=== PATIENT | female | born 1955 | race Caucasian/White ===

== ENCOUNTER 2016-11-21 19:19 | Observation (INO) | payer OTHER ==
[2016-11-21] MEDS ORDERED: NITROGLYCERIN SL TABS 0.4 MG TAB SUBLINGUAL STA ×3 (19:37)
[2016-11-21] MEDS ORDERED: ASPIRIN 81 MG PO STA (19:37)
--- NOTE | 2016-11-21 19:40 | ED ---
General Adult HPI - General Chief complaint: Chest Pain Stated complaint: chest pressure (hx pulmonary hypertension) Time Seen by Provider: 11/21/16 19:34 Source: patient, RN notes reviewed Mode of arrival: wheelchair Limitations: no limitations - History of Present Illness Initial comments: Patient is a pleasant [age]-year-old female presenting to the emergency department complaining of chest discomfort. Onset was this morning. Symptoms have been waxing and waning since that time. Discomfort is moderate at this time. Discomfort feels a pressure without radiation. There is some associated nausea and patient has been a little bit sweaty. No dyspnea. Patient did have similar symptoms previously when she had a heart attack. Patient does admit to having 2 drinks earlier today that seemed to be very strong for her. Patient does not normally drink much alcohol. Patient does feel lightheaded and like her legs are weak. - Related Data Home Medications Medication Instructions Recorded Confirmed Furosemide [Lasix] 80 mg PO BID 11/21/16 11/21/16 Gabapentin [Neurontin] 300 mg PO TID 11/21/16 11/21/16 Levothyroxine Sodium [Synthroid] 88 mcg PO DAILY 11/21/16 11/21/16 Potassium Chloride ER [K-Dur 20] 20 meq PO DAILY 11/21/16 11/21/16 Ranitidine HCl [Zantac] 150 mg PO BID 11/21/16 11/21/16 Selexipag [Uptravi] 1,600 mcg PO BID 11/21/16 11/21/16 Spironolactone [Aldactone] 200 mg PO DAILY 11/21/16 11/21/16 oxyCODONE-APAP 10-325MG [Percocet 1 tab PO Q6HR PRN 11/21/16 11/21/16 10-325 mg] Allergies Allergy/AdvReac Type Severity Reaction Status Date / Time cephalexin [From Keflex] Allergy Rash/Hives Verified 11/21/16 20:47 heparin Allergy Thrombocyto Verified 11/21/16 20:47 penia Review of Systems ROS Statement: Those systems with pertinent positive or pertinent negative responses have been documented in the HPI. ROS Other: All systems not noted in ROS Statement are negative. Constitutional: Denies: fever Eyes: Denies: eye pain ENT: Denies: ear pain Respiratory: Denies: cough Cardiovascular: Reports: chest pain Endocrine: Denies: fatigue Gastrointestinal: Reports: nausea. Denies: abdominal pain Genitourinary: Denies: dysuria Musculoskeletal: Denies: back pain Skin: Denies: rash Neurological: Denies: headache Past Medical History Past Medical History: Coronary Artery Disease (CAD), Myocardial Infarction ([place]) Additional Past Medical History / Comment(s): pulmonary fibrosis History of Any Multi-Drug Resistant Organisms: None Reported Past Psychological History: No Psychological Hx Reported Smoking Status: Current every day smoker Past Alcohol Use History: Occasional Past Drug Use History: None Reported General Exam Limitations: no limitations General appearance: alert, in no apparent distress Head exam: Present: atraumatic Eye exam: Present: normal appearance, PERRL, EOMI, nystagmus ENT exam: Present: normal oropharynx Neck exam: Present: normal inspection Respiratory exam: Present: normal lung sounds bilaterally Cardiovascular Exam: Present: regular rate, normal rhythm Expanded Peripheral pulses: 2+: Radial (R), Radial (L), Dorsalis Pedis (R), Dorsalis Pedis (L) GI/Abdominal exam: Present: soft. Absent: tenderness Extremities exam: Present: normal inspection. Absent: pedal edema, calf tenderness Neurological exam: Present: alert Psychiatric exam: Present: normal affect, normal mood Skin exam: Present: normal color Course Vital Signs 11/21/16 11/21/16 11/21/16 19:35 19:58 20:06 Temperature 98.1 F Pulse Rate 77 90 84 Respiratory 18 16 16 Rate Blood Pressure 131/82 112/78 103/68 O2 Sat by Pulse 96 95 95 Oximetry 11/21/16 20:56 Temperature Pulse Rate 81 Respiratory 16 Rate Blood Pressure 98/63 O2 Sat by Pulse 98 Oximetry EKG Findings - EKG Comments: EKG Findings:: Normal sinus rhythm 75. SD 164. QRS 74. QT 406. QTc 453. Normal axis. Normal QRS. No acute ST change. Medical Decision Making - Medical Decision Making Patient reevaluated and resting comfortably in bed. Patient updated on results and plan. Case was discussed with Dr. Albrecht with [facility] who will admit for hospital call. - Lab Data Result diagrams: 11/21/16 19:45 11/21/16 19:45 Lab Results 11/21/16 11/21/16 11/21/16 Range/Units 19:45 19:45 19:45 WBC 6.3 (3.8-10.6) k/uL RBC 5.22 (3.80-5.40) m/uL Hgb 17.6 H (11.4-16.0) gm/dL Hct 53.4 H (34.0-46.0) % MCV 102.3 H (80.0-100.0) fL MCH 33.7 (25.0-35.0) pg MCHC 32.9 (31.0-37.0) g/dL RDW 14.1 (11.5-15.5) % Plt Count 151 (150-450) k/uL Neutrophils % 59 % Lymphocytes % 27 % Monocytes % 8 % Eosinophils % 2 % Basophils % 1 % Neutrophils # 3.7 (1.3-7.7) k/uL Lymphocytes # 1.7 (1.0-4.8) k/uL Monocytes # 0.5 (0-1.0) k/uL Eosinophils # 0.1 (0-0.7) k/uL Basophils # 0.0 (0-0.2) k/uL Macrocytosis Slight PT (9.0-12.0) sec INR (<1.2) APTT (22.0-30.0) sec Sodium 140 (137-145) mmol/L Potassium 3.6 (3.5-5.1) mmol/L Chloride 107 (98-107) mmol/L Carbon Dioxide 20 L (22-30) mmol/L Anion Gap 13 mmol/L BUN 4 L (7-17) mg/dL Creatinine 0.70 (0.52-1.04) mg/dL Est GFR (MDRD) Af Amer >60 (>60 ml/min/1.73 sqM) Est GFR (MDRD) Non-Af >60 (>60 ml/min/1.73 sqM) Glucose 100 H (74-99) mg/dL Calcium 9.1 (8.4-10.2) mg/dL Magnesium 2.1 (1.6-2.3) mg/dL Total Bilirubin 0.8 (0.2-1.3) mg/dL AST 50 H (14-36) U/L ALT 45 (9-52) U/L Alkaline Phosphatase 154 H (38-126) U/L Total Creatine Kinase 47 (30-135) U/L CK-MB (CK-2) 0.4 (0.0-2.4) ng/mL CK-MB (CK-2) Rel Index 0.9 Troponin I <0.012 (0.000-0.034) ng/mL Total Protein 8.0 (6.3-8.2) g/dL Albumin 4.6 (3.5-5.0) g/dL Serum Alcohol 222 mg/dL 11/21/16 Range/Units 19:45 WBC (3.8-10.6) k/uL RBC (3.80-5.40) m/uL Hgb (11.4-16.0) gm/dL Hct (34.0-46.0) % MCV (80.0-100.0) fL MCH (25.0-35.0) pg MCHC (31.0-37.0) g/dL RDW (11.5-15.5) % Plt Count (150-450) k/uL Neutrophils % % Lymphocytes % % Monocytes % % Eosinophils % % Basophils % % Neutrophils # (1.3-7.7) k/uL Lymphocytes # (1.0-4.8) k/uL Monocytes # (0-1.0) k/uL Eosinophils # (0-0.7) k/uL Basophils # (0-0.2) k/uL Macrocytosis PT 10.7 (9.0-12.0) sec INR 1.1 (<1.2) APTT 26.4 (22.0-30.0) sec Sodium (137-145) mmol/L Potassium (3.5-5.1) mmol/L Chloride (98-107) mmol/L Carbon Dioxide (22-30) mmol/L Anion Gap mmol/L BUN (7-17) mg/dL Creatinine (0.52-1.04) mg/dL Est GFR (MDRD) Af Amer (>60 ml/min/1.73 sqM) Est GFR (MDRD) Non-Af (>60 ml/min/1.73 sqM) Glucose (74-99) mg/dL Calcium (8.4-10.2) mg/dL Magnesium (1.6-2.3) mg/dL Total Bilirubin (0.2-1.3) mg/dL AST (14-36) U/L ALT (9-52) U/L Alkaline Phosphatase (38-126) U/L Total Creatine Kinase (30-135) U/L CK-MB (CK-2) (0.0-2.4) ng/mL CK-MB (CK-2) Rel Index Troponin I (0.000-0.034) ng/mL Total Protein (6.3-8.2) g/dL Albumin (3.5-5.0) g/dL Serum Alcohol mg/dL - Radiology Data Radiology results: image reviewed (Chest x-ray shows engorgement of the hilum which may be related to underlying pulmonary hypertension. Mild pulmonary vascular congestion.) Disposition Clinical Impression: Chest pain Disposition: ADMITTED IP TO THIS HOSP Referrals: Daniel Miller DO [Primary Care Provider] - 1-2 days Decision Time: 21:12
[2016-11-21 19:59] LABS: Basophils % (A) 1 %; CH 34.6; Eosinophils # (A) 0.1 k/uL (0-0.7); Eosinophils % (A) 2 %; HCT 53.4 % (34.0-46.0); HGB 17.6 gm/dL (11.4-16.0); Luc # (Auto) 0.22; Luc % (Auto) 3; Lymphocytes # (A) 1.7 k/uL (1.0-4.8); Lymphocytes % (A) 27 %; MCH 33.7 pg (25.0-35.0); MCHC 32.9 g/dL (31.0-37.0); MCV 102.3 fL (80.0-100.0); Macrocytosis Slight; Mean Platelet Volume 8.9; Monocytes # (A) 0.5 k/uL (0-1.0); Monocytes % (A) 8 %; Neutrophils # (A) 3.7 k/uL (1.3-7.7); Neutrophils % (A) 59 %; RBC 5.22 m/uL (3.80-5.40); RDW 14.1 % (11.5-15.5); WBC 6.3 k/uL (3.8-10.6); WBC (Perox) 6.25
[2016-11-21 20:09] LABS: ALT 45 U/L (9-52); AST 50 U/L (14-36); Alkaline Phosphatase 154 U/L (38-126); Anion Gap 13 mmol/L; Blood Urea Nitrogen 4 mg/dL (7-17); Calcium 9.1 mg/dL (8.4-10.2); Carbon Dioxide 20 mmol/L (22-30); Chloride 107 mmol/L (98-107); Glucose 100 mg/dL (74-99); Magnesium 2.1 mg/dL (1.6-2.3); Non-African American GFR(MDRD) >60 (>60 ml/min/1.73 sqM); Potassium 3.6 mmol/L (3.5-5.1); Sodium 140 mmol/L (137-145); Total Bilirubin 0.8 mg/dL (0.2-1.3)
[2016-11-21 20:11] LABS: INR 1.1 (<1.2); Partial Thromboplastin Time 26.4 sec (22.0-30.0); Prothrombin Time 10.7 sec (9.0-12.0)
[2016-11-21 20:12] LABS: Creatine Kinase 47 U/L (30-135)
[2016-11-21 20:19] LABS: Alcohol 222 mg/dL
[2016-11-21 20:27] LABS: Creatine Kinase MB 0.4 ng/mL (0.0-2.4); Troponin I <0.012 ng/mL (0.000-0.034)
--- NOTE | 2016-11-21 20:51 | XR ---
EXAMINATION TYPE: XR chest 2V DATE OF EXAM: 11/21/2016 COMPARISON: NONE HISTORY: Chest pain, hypertension, coronary artery disease and pulmonary fibrosis TECHNIQUE: Frontal and lateral views of the chest are obtained. FINDINGS: There is no focal air space opacity, pleural effusion, or pneumothorax seen. Engorged hil ar vasculature may relate to underlying pulmonary arterial hypertension. Mild cephalization relates t o mild pulmonary vascular congestion. The cardiac silhouette size is within normal limits. The osse ous structures are intact. IMPRESSION: 1. Mild pulmonary vascular congestion. 2. Engorgement of the jose c may relate to underlying pulmonary arterial hypertension.
[2016-11-21 22:41] VITALS: RESP 18
[2016-11-21] MEDS ORDERED: NITROGLYCERIN SL TABS 0.4 MG TAB SUBLINGUAL PRN (23:34)
[2016-11-21] MEDS: oxyCODONE-APAP 10-325MG 1 EACH TAB PO PRN (23:39)
[2016-11-21] MEDS ORDERED: LORazepam 0.5 MG TAB PO SCH (23:45)
--- NOTE | 2016-11-21 23:58 | P.HPIM ---
History of Present Illness H&P Date: 11/21/16 Chief Complaint: Chest pain Patient is 61 years old female with history of coronary artery disease presents to the emergency room with a chief complaint of chest pain and and she characterizes the pain as pressure "someone is sitting on my chest", it happened while she was walking in her house she had 2 drinks prior to that which she is not accustomed to as, the pain lasted around 20 minutes or so no radiation, improved with nitroglycerin sublingual Review of Systems Constitutional: Patient reports no fever, no chills, no weight changes, no change in appetite Eyes: Patient reports no double vision, no visual changes ENT: Patient reports no rhinorrhea, no post nasal drip, no sore throat Cardiovascular: Patient reports chest, no edema, no palpitations, no syncope, no orthopnea, no paroxysmal nocturnal dyspnea. Respiratory: Patient reports no dyspnea, no cough, no wheeze Gastrointestinal: Patient reports no nausea, no vomiting, no constipation, no diarrhea Genitourinary: Patient reports no dysuria, no urinary frequency, no hematuria. Musculoskeletal: Patient reports no unusual joint pain, no joint swelling or weakness. Patient reports no muscular pain. Psychiatric: Patient reports no changes in mood, no sleeping problems. Patient reports no changes in memory. Endocrine: Patient reports no thirst, no polyuria, no cold intolerance, no heat intolerance. Neurological: Patient reports unusual paresthesias in her feet and she was told to neuropathy, no seizures, no paresis, no paralysis, no facila droop, no headache. Heme/Lymphatic: Patient reports no easy bruising, no bleeding tendency, no lymphadenopathy. Allergic/ Immunologic: Patient reports no recent allergic reactions or immunologic history. Skin: Patient reports no rashes or unusual lesions. Past Medical History Past Medical History: Coronary Artery Disease (CAD), Myocardial Infarction ([place]) Additional Past Medical History / Comment(s): pulmonary fibrosis, liver cirrhosis, PNeuropathy History of Any Multi-Drug Resistant Organisms: None Reported Past Surgical History: Heart Catheterization Past Psychological History: No Psychological Hx Reported Smoking Status: Current every day smoker Past Alcohol Use History: Occasional Past Drug Use History: None Reported Medications and Allergies Home Medications Medication Instructions Recorded Confirmed Type Furosemide [Lasix] 80 mg PO BID 11/21/16 11/21/16 History Gabapentin [Neurontin] 300 mg PO TID 11/21/16 11/21/16 History Levothyroxine Sodium [Synthroid] 88 mcg PO DAILY 11/21/16 11/21/16 History Potassium Chloride ER [K-Dur 20] 20 meq PO DAILY 11/21/16 11/21/16 History Ranitidine HCl [Zantac] 150 mg PO BID 11/21/16 11/21/16 History Selexipag [Uptravi] 1,600 mcg PO BID 11/21/16 11/21/16 History Spironolactone [Aldactone] 200 mg PO DAILY 11/21/16 11/21/16 History oxyCODONE-APAP 10-325MG [Percocet 1 tab PO Q6HR PRN 11/21/16 11/21/16 History 10-325 mg] Allergies Allergy/AdvReac Type Severity Reaction Status Date / Time cephalexin [From Keflex] Allergy Rash/Hives Verified 11/21/16 20:47 heparin Allergy Thrombocyto Verified 11/21/16 20:47 penia Physical Exam Vitals: Vital Signs Temp Pulse Pulse Resp BP BP Pulse Ox 11/21/16 22:39 98.1 F 78 18 118/70 97 11/21/16 21:53 97.9 F 84 16 101/60 98 11/21/16 21:45 79 16 101/59 99 11/21/16 20:56 81 16 98/63 98 11/21/16 20:06 84 16 103/68 95 11/21/16 19:58 90 16 112/78 95 11/21/16 19:35 98.1 F 77 18 131/82 96 Intake and Output 11/21/16 11/21/16 11/22/16 14:59 22:59 06:59 Other: Weight 70.76 kg Patient Weight 11/22/16 06:59 Weight 70.76 kg Results CBC & Chem 7: 11/21/16 19:45 11/21/16 19:45 Labs: Abnormal Lab Results - Last 24 Hours (Table) 11/21/16 11/21/16 Range/Units 19:45 19:45 Hgb 17.6 H (11.4-16.0) gm/dL Hct 53.4 H (34.0-46.0) % MCV 102.3 H (80.0-100.0) fL Carbon Dioxide 20 L (22-30) mmol/L BUN 4 L (7-17) mg/dL Glucose 100 H (74-99) mg/dL AST 50 H (14-36) U/L Alkaline Phosphatase 154 H (38-126) U/L
[2016-11-22 00:03] VITALS: BMI 25.9
--- NOTE | 2016-11-22 00:15 | P.HPADDEND ---
H&P Addendum H&P Addendum Date: 11/22/16 Assessment and plan: .1 chest pain She will be ruled out with serial troponins we continue nitroglycerin aspirin would not use beta blockers due to low blood pressure and likely history of COPD ] the patient had pulmonary hypertension diagnosis. We will place her on telemetry provide oxygen morphine as needed for pain. We will consult cardiology in the morning as the patient most likely will need a stress test if she is ruled out. 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 .3 liver cirrhosis Patient carries diagnosis of liver cirrhosis she was told it is due to alcohol as she used to drink heavily in the past I did world travel counselor her as she occasionally drinks alcohol now. She does not have the stigmata of liver cirrhosis and her laboratory findings seems to be stable. She will continue to follow-up as outpatient with her liver specialist in [facility]. 4. Pulmonary hypertension Per patient she has history of pulmonary hypertension and she follows at [facility] she is not sure about cause of her disease however she had long-standing history of smoking so it's likely related to COPD I Will place her on oxygen and nebulizer per protocol. 5. Smoking and nicotine abuse. She was counseled more than 20 minutes regarding nicotine cessation. Time spent admitting this patient is 1 hour 10 minutes.
[2016-11-22] MEDS: NITROGLYCERIN OINT 1 INCH/GM PACKET TOPICAL SCH ×2 (02:59→13:09)
[2016-11-22] MEDS ORDERED: LEVOTHYROXINE 88 MCG TAB PO SCH (06:30)
[2016-11-22 07:49] VITALS: TEMP 97.9
[2016-11-22] MEDS: oxyCODONE-APAP 10-325MG 1 EACH TAB PO PRN ×2 (08:48→16:05)
[2016-11-22] MEDS ORDERED: ASPIRIN 81 MG PO SCH (09:00)
[2016-11-22] MEDS ORDERED: FUROSEMIDE 80 MG TAB PO SCH (09:00)
[2016-11-22] MEDS ORDERED: GABAPENTIN 300 MG CAP PO SCH ×2 (09:00)
[2016-11-22] MEDS ORDERED: SPIRONOLACTONE 25 MG TAB PO SCH (09:00)
[2016-11-22] MEDS ORDERED: NON-FORMULARY DRUG (Ranitidine Hcl [Zantac] 150 MG) PO SCH (09:00)
[2016-11-22] MEDS ORDERED: SELEXIPAG 1600 MCG PO SCH (09:00)
[2016-11-22] MEDS ORDERED: AMINOPHYLLINE 500 MG/20 ML VIAL IV PRN (10:16)
[2016-11-22] MEDS ORDERED: REGADENOSON 0.4 MG/5 ML SYRINGE IV ONE (10:16)
--- NOTE | 2016-11-22 10:24 | P.CRDCN ---
History of Present Illness Consult date: 11/22/16 History of present illness: This is a 61-year-old female with history of "" coronary artery disease and also pulmonary hypertension who also is diagnosed to have cirrhosis of the liver , is admitted to the hospital with complaints of some episodes of dizziness and sharp chest pains and also some heaviness on the left side of the chest. The symptoms might last A half hour or so. Apparently patient was given sublingual nitroglycerin without much relief. Subsequent a she was given something to relax her anxiety and she started feeling better. Her EKGs did not reveal any significant changes. Cardiac enzymes are so far not size to of myocardial infarction. We discussed about the further evaluation here to by cardiac catheterization or a stress test. 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 Patient is not on heparin. We decided to proceed with the Lexiscan stress test. Further examination depend upon the findings on the Stress test. Her EKGs are completely normal Review of Systems As per HPI Past Medical History Past Medical History: Coronary Artery Disease (CAD), Myocardial Infarction ([place]) Additional Past Medical History / Comment(s): pulmonary fibrosis, liver cirrhosis, PNeuropathy Last Myocardial Infarction Date:: 2012 History of Any Multi-Drug Resistant Organisms: None Reported Past Surgical History: Heart Catheterization Past Anesthesia/Blood Transfusion Reactions: No Reported Reaction Past Psychological History: No Psychological Hx Reported Smoking Status: Current every day smoker Past Alcohol Use History: Occasional Past Drug Use History: None Reported Medications and Allergies Home Medications Medication Instructions Recorded Confirmed Type Furosemide [Lasix] 80 mg PO BID 11/21/16 11/21/16 History Gabapentin [Neurontin] 300 mg PO TID 11/21/16 11/21/16 History Levothyroxine Sodium [Synthroid] 88 mcg PO DAILY 11/21/16 11/21/16 History Potassium Chloride ER [K-Dur 20] 20 meq PO DAILY 11/21/16 11/21/16 History Ranitidine HCl [Zantac] 150 mg PO BID 11/21/16 11/21/16 History Selexipag [Uptravi] 1,600 mcg PO BID 11/21/16 11/21/16 History Spironolactone [Aldactone] 200 mg PO DAILY 11/21/16 11/21/16 History oxyCODONE-APAP 10-325MG [Percocet 1 tab PO Q6HR PRN 11/21/16 11/21/16 History 10-325 mg] Allergies Allergy/AdvReac Type Severity Reaction Status Date / Time cephalexin [From Keflex] Allergy Rash/Hives Verified 11/21/16 20:47 heparin Allergy Thrombocyto Verified 11/21/16 20:47 penia Physical Exam Vitals: Vital Signs Temp Pulse Pulse Resp BP BP Pulse Ox 11/22/16 07:48 97.9 F 87 18 103/74 93 L 11/22/16 04:00 98.1 F 84 18 109/70 95 11/22/16 00:00 75 18 11/21/16 22:39 98.1 F 78 18 118/70 97 11/21/16 21:53 97.9 F 84 16 101/60 98 11/21/16 21:45 79 16 101/59 99 11/21/16 20:56 81 16 98/63 98 11/21/16 20:06 84 16 103/68 95 11/21/16 19:58 90 16 112/78 95 11/21/16 19:35 98.1 F 77 18 131/82 96 Intake and Output 11/21/16 11/22/16 11/22/16 22:59 06:59 14:59 Other: # Voids 1 Weight 70.76 kg GENERAL EXAM: Patient is alert and oriented and doesn't appear to be in any acute distress, looks chronically ill HEENT: Normocephalic. Normal reaction of pupils, equal size, normal range of extraocular motion. No erythema or exudates in the throat. NECK: No masses, no nuchal rigidity. CHEST: No chest wall deformity. LUNGS: Equal air entry with no crackles or wheeze. Diminished breath sounds HEART: S1 and S2 normal with no audible mumurs or gallops. Regular rhythm, femorals equal on both sides.. ABDOMEN: No hepatosplenomegaly, normal bowel sounds, no guarding or rigidity. SKIN: No rashes CENTRAL NERVOUS SYSTEM: No focal deficits. EXTREMITIES: No cyanosis, clubbing or edema. Results 11/21/16 19:45 11/21/16 19:45 Cardiac Enzymes 11/21/16 11/21/16 11/22/16 Range/Units 19:45 19:45 01:54 AST 50 H (14-36) U/L CK-MB (CK-2) 0.4 (0.0-2.4) ng/mL Troponin I <0.012 <0.012 (0.000-0.034) ng/mL Coagulation 11/21/16 Range/Units 19:45 PT 10.7 (9.0-12.0) sec APTT 26.4 (22.0-30.0) sec CBC 11/21/16 Range/Units 19:45 WBC 6.3 (3.8-10.6) k/uL RBC 5.22 (3.80-5.40) m/uL Hgb 17.6 H (11.4-16.0) gm/dL Hct 53.4 H (34.0-46.0) % Plt Count 151 (150-450) k/uL Comprehensive Metabolic Panel 11/21/16 Range/Units 19:45 Sodium 140 (137-145) mmol/L Potassium 3.6 (3.5-5.1) mmol/L Chloride 107 (98-107) mmol/L Carbon Dioxide 20 L (22-30) mmol/L BUN 4 L (7-17) mg/dL Creatinine 0.70 (0.52-1.04) mg/dL Glucose 100 H (74-99) mg/dL Calcium 9.1 (8.4-10.2) mg/dL AST 50 H (14-36) U/L ALT 45 (9-52) U/L Alkaline Phosphatase 154 H (38-126) U/L Total Protein 8.0 (6.3-8.2) g/dL Albumin 4.6 (3.5-5.0) g/dL Current Medications Generic Name Dose Route Start Last Admin Trade Name Freq PRN Reason Stop Dose Admin Aminophylline 100 mg 11/22/16 10:16 Aminophylline IV 11/23/16 10:17 ONCE PRN Patient Response Aspirin 81 mg 11/22/16 09:00 Aspirin PO DAILY [facility] Furosemide 80 mg 11/22/16 09:00 Lasix PO BID [facility] Gabapentin 300 mg 11/22/16 09:00 Neurontin PO TID [facility] Levothyroxine Sodium 88 mcg 11/22/16 06:30 11/22/16 06:49 Synthroid PO Not Given 0630 [facility] Nitroglycerin 1 inch 11/22/16 00:00 11/22/16 02:59 Nitro-Bid Oint TOPICAL Not Given Q8HR [facility] Nitroglycerin 0.4 mg 11/21/16 23:34 Nitrostat SUBLINGUAL Q5M PRN Chest Pain Non-Formulary Medication 150 mg 11/22/16 09:00 Ranitidine Hcl [Zantac] PO BID [facility] Non-Formulary Medication 1,600 mcg 11/22/16 09:00 Selexipag [Uptravi] PO BID [facility] Oxycodone/Acetaminophen 1 each 11/21/16 23:06 11/22/16 08:48 Percocet 10-325 PO 1 each Q6HR PRN Administration Pain Spironolactone 200 mg 11/22/16 09:00 Aldactone PO DAILY [facility] Intake and Output 11/21/16 11/22/16 11/22/16 22:59 06:59 14:59 Other: # Voids 1 Weight 70.76 kg 11/21/16 19:45 11/21/16 19:45 EKG Interpretations (text) Sinus rhythm Assessment and Plan (1) History of pulmonary fibrosis Status: Acute (2) Chest pain Status: Acute (3) History of coronary artery disease Status: Acute (4) Cirrhosis of liver Status: Acute Plan: As patient cardiac enzymes and EKGs are negative and patient has history of heparin-induced thrombocytopenia, we are going to proceed with the Lexiscan stress test. If the test is positive may recommend further cardiac catheterization. If not, patient could be managed with medical therapy. Patient will have follow-up with the test designer at [facility].
[2016-11-22 11:38] VITALS: BP 119/75; PULSE 63
--- NOTE | 2016-11-22 12:42 | P.STRESS ---
- Stress Test Note Stress Test Results/Findings: Exam Performed: NM stress lexiscan cardiolite Exam Date: 11/22/16 Reason for Exam: CHEST PAIN Height: 5 ft 5 in Weight: 70.76 kg Protocol: LEXISCAN CARDIOLITE Stage: Duration of Exercise: 5:00 Resting Heart Rate: 75 Resting Blood Pressure: 100/69 Maximum Achieved Heart Rate: 112 Maximum Achieved Blood Pressure: 119/92 85% PMHR: 152 100% PMHR: 179 METS: Technologist Comment: Stress Test Results/Findings: This patient is being evaluated for symptoms of chest pain. Patient has history of hypercholesterolemia, smoking and previous history of myocardial infarction and pulmonary fibrosis. Baseline EKG showed sinus rhythm with normal TX interval and QRS duration. A standard dose of Lexiscan was infused. EKGs did not reveal any significant changes from a baseline. Final impression: Negative Lexiscan stress test. Report on the nuclear images to be given by the radiologist
--- NOTE | 2016-11-22 14:00 | NM ---
EXAMINATION TYPE: NM stress lexiscan cardiolite DATE OF EXAM: 11/22/2016 COMPARISON: NONE HISTORY: Chest pain TECHNIQUE: After the intravenous administration of 11 and 26.5 mCi Tc 99m Sestamibi - The patient received 0.4mg Lexiscan, FINDINGS: Review of stress and rest SPECT images demonstrates no distinct perfusion abnormality. Gated analysi s shows normal wall motion with an estimated left ventricular ejection fraction of 81 %. IMPRESSION: No scintigraphic evidence for reversible ischemia.
--- NOTE | 2016-11-22 15:05 | P.DS ---
Providers Date of admission: 11/21/16 21:12 Expected date of discharge: 11/22/16 Attending physician: Scott Albrecht MD Consults: 11/22/16 09:38 Consult Physician Routine Consulting Provider: Weston Brito Consult Reason/Comments: Cp Do you want consulting provider notified?: Yes Primary care physician: [place] Hospital Course: HPI Patient is 61 years old female with history of coronary artery disease presents to the emergency room with a chief complaint of chest pain and and she characterizes the pain as pressure "someone is sitting on my chest", it happened while she was walking in her house she had 2 drinks prior to that which she is not accustomed to as, the pain lasted around 20 minutes or so no radiation, improved with nitroglycerin sublingual Hospital course: Patient has been admitted to telemetry for observation, cardiac markers negative , EKG normal. Cardiology evaluated patient, stress test was done and negative. Pain is reproducible to palpation, most likely musculoskeletal etiology. Patient has been discharged home in improved and stable condition. Recommendations to follow up with cardiology in 2 weeks. Physical exam on day of discharge: General-no acute distress, lying comfortably in bed. HEENT-normocephalic and atraumatic, sclerae anicteric, EOMI. Neck supple, no thyromegaly or lymphadenopathy, no JVD. Cardiovascular-regular rate and rhythm, normal S1 and S2. Chest clear to auscultation bilaterally, no wheezes rhonchi or crackles. Abdomen is soft, positive bowel sounds, no organomegaly Extremities-no edema or cyanosis. Discharge time less than 30 minutes. Plan - Discharge Summary New Discharge Prescriptions: New Aspirin 81 mg PO DAILY Continue Spironolactone [Aldactone] 200 mg PO DAILY Potassium Chloride ER [K-Dur 20] 20 meq PO DAILY Levothyroxine Sodium [Synthroid] 88 mcg PO DAILY oxyCODONE-APAP 10-325MG [Percocet 10-325 mg] 1 tab PO Q6HR PRN PRN Reason: Pain Selexipag [Uptravi] 1,600 mcg PO BID Ranitidine HCl [Zantac] 150 mg PO BID Gabapentin [Neurontin] 300 mg PO TID Furosemide [Lasix] 80 mg PO BID Discharge Medication List Furosemide [Lasix] 80 mg PO BID 11/21/16 [History] Gabapentin [Neurontin] 300 mg PO TID 11/21/16 [History] Levothyroxine Sodium [Synthroid] 88 mcg PO DAILY 11/21/16 [History] Potassium Chloride ER [K-Dur 20] 20 meq PO DAILY 11/21/16 [History] Ranitidine HCl [Zantac] 150 mg PO BID 11/21/16 [History] Selexipag [Uptravi] 1,600 mcg PO BID 11/21/16 [History] Spironolactone [Aldactone] 200 mg PO DAILY 11/21/16 [History] oxyCODONE-APAP 10-325MG [Percocet 10-325 mg] 1 tab PO Q6HR PRN 11/21/16 [History ] Aspirin 81 mg PO DAILY 11/22/16 [Rx] Follow up Appointment(s)/Referral(s): Daniel Miller DO [Primary Care Provider] - 1-2 days Weston Brito MD [STAFF PHYSICIAN] - 2 Weeks
--- NOTE | 2016-11-26 10:11 | EST ---
Stress Test Results/Findings: Exam Performed: NM stress lexiscan cardiolite Exam Date: 11/22/16 Reason for Exam: CHEST PAIN Height: 5 ft 5 in Weight: 70.76 kg Protocol: LEXISCAN CARDIOLITE Stage: Duration of Exercise: 5:00 Resting Heart Rate: 75 Resting Blood Pressure: 100/69 Maximum Achieved Heart Rate: 112 Maximum Achieved Blood Pressure: 119/92 85% PMHR: 152 100% PMHR: 179 METS: Technologist Comment: Stress Test Results/Findings: This patient is being evaluated for symptoms of chest pain. Patient has history of hypercholesterolemia, smoking and previous history of myocardial infarction and pulmonary fibrosis. Baseline EKG showed sinus rhythm with normal SC interval and QRS duration. A standard dose of Lexiscan was infused. EKGs did not reveal any significant changes from a baseline. Final impression: Negative Lexiscan stress test. Report on the nuclear images to be given by the radiologist INNA
== END 2016-11-22 16:36 | disposition home or self-care (01) ==
LOC: EC 19:19 → 3OBS 21:12
PROVIDERS: ADMIT Internal Medicine; ATTEND Internal Medicine
DX: R07.89 Other chest pain (principal); I27.2 Other secondary pulmonary hypertension; I25.2 Old myocardial infarction; R53.1 Weakness; R42 Dizziness and giddiness; R11.0 Nausea; J84.10 Pulmonary fibrosis, unspecified; F17.200 Nicotine dependence, unspecified, uncomplicated; I25.10 Atherosclerotic heart disease of native coronary artery without angina pectoris; I10 Essential (primary) hypertension; F41.9 Anxiety disorder, unspecified; K74.60 Unspecified cirrhosis of liver; G62.9 Polyneuropathy, unspecified; Z88.1 Allergy status to other antibiotic agents; Z88.8 Allergy status to other drugs, medicaments and biological substances; Z79.899 Other long term (current) drug therapy
CPT/HCPCS: 99285; 36415; 93005; 93017; 83880; 80053; 82550; 82553; 83735; 84484 ×2; 85025; 85610; 85730; 80320; 71020; 78452; G0378 ×2; A9500; J2785

== ENCOUNTER 2024-04-01 12:20 | Inpatient (IN) | payer MEDICARE, OTHER ==
--- NOTE | 2024-04-01 13:02 | ED ---
General Adult HPI - General Chief complaint: Shortness of Breath Stated complaint: Generalized swelling Time Seen by Provider: 04/01/24 12:39 Source: patient, RN notes reviewed Mode of arrival: wheelchair Limitations: no limitations - History of Present Illness Initial comments: Patient is a 68-year-old female presents emergency department with concerns of generally swelling. Symptoms started several days ago. Patient does have history of cirrhosis with history of similar symptoms previously. Patient did have paracentesis 1 time. Patient is also having some shortness of breath. Patient has generalized edema including her arms and legs abdomen. - Related Data Home Medications Medication Instructions Recorded Confirmed Furosemide [Lasix] 80 mg PO BID 11/21/16 11/21/16 Gabapentin [Neurontin] 300 mg PO TID 11/21/16 11/21/16 Levothyroxine Sodium [Synthroid] 88 mcg PO DAILY 11/21/16 11/21/16 Potassium Chloride ER [K-Dur 20] 20 meq PO DAILY 11/21/16 11/21/16 Ranitidine HCl [Zantac] 150 mg PO BID 11/21/16 11/21/16 Selexipag [Uptravi] 1,600 mcg PO BID 11/21/16 11/21/16 Spironolactone [Aldactone] 200 mg PO DAILY 11/21/16 11/21/16 oxyCODONE-APAP 10-325MG [Percocet 1 tab PO Q6HR PRN 11/21/16 11/21/16 10-325 mg] Previous Rx's Medication Instructions Recorded Aspirin 81 mg PO DAILY 11/22/16 Allergies Allergy/AdvReac Type Severity Reaction Status Date / Time cephalexin [From Keflex] Allergy Rash/Hives Verified 04/01/24 12:29 heparin Allergy Thrombocyto Verified 04/01/24 12:29 penia Review of Systems ROS Statement: Those systems with pertinent positive or pertinent negative responses have been documented in the HPI. ROS Other: All systems not noted in ROS Statement are negative. Constitutional: Denies: fever Eyes: Denies: eye pain ENT: Denies: ear pain Respiratory: Reports: as per HPI, dyspnea Cardiovascular: Reports: edema. Denies: chest pain Endocrine: Reports: fatigue Gastrointestinal: Reports: as per HPI Past Medical History Past Medical History: Coronary Artery Disease (CAD), Myocardial Infarction ([place]) Additional Past Medical History / Comment(s): pulmonary fibrosis, liver cirrho sis, PNeuropathy Last Myocardial Infarction Date:: 2012 History of Any Multi-Drug Resistant Organisms: None Reported Past Surgical History: Heart Catheterization Past Anesthesia/Blood Transfusion Reactions: No Reported Reaction Past Psychological History: No Psychological Hx Reported Smoking Status: Former smoker Past Alcohol Use History: Daily Past Drug Use History: None Reported General Exam Limitations: no limitations General appearance: alert, in no apparent distress Head exam: Present: normocephalic Eye exam: Present: normal appearance Neck exam: Present: normal inspection Respiratory exam: Present: decreased breath sounds Cardiovascular Exam: Present: regular rate, normal rhythm GI/Abdominal exam: Present: soft, distended (Ascites) Extremities exam: Present: pedal edema, other (Patient also has arm edema) Neurological exam: Present: alert Psychiatric exam: Present: normal affect, normal mood Skin exam: Present: normal color Course Vital Signs 04/01/24 04/01/24 04/01/24 12:25 13:10 15:09 Temperature 98.7 F Pulse Rate 104 H 101 H 97 Respiratory 18 18 18 Rate Blood Pressure 152/69 107/67 105/61 O2 Sat by Pulse 90 L 95 96 Oximetry EKG Findings - EKG Results: EKG: interpreted by ERMD (Low QRS voltage. Nonspecific ST-T.), sinus rhythm, normal axis EKG shows: tachycardia Medical Decision Making - Medical Decision Making Was pt. sent in by a medical professional or institution (, PA, RETURN CHECKER, urgent care, hospital, or senior living...) When possible be specific @ -No Did you speak to anyone other than the patient for history (EMS, parent, family, police, friend...)? What history was obtained from this source @ -No Did you review nursing and triage notes (agree or disagree)? Why? @ -I reviewed and agree with nursing and triage notes Were old charts reviewed (outside hosp., previous admission, EMS record, old EKG, old radiological studies, urgent care reports/EKG's, senior living records)? Report findings @ -No old charts were reviewed Differential Diagnosis (chest pain, altered mental status, abdominal pain women, abdominal pain men, vaginal bleeding, weakness, fever, dyspnea, syncope, headache, dizziness, GI bleed, back pain, seizure, CVA, palpatations, mental health, musculoskeletal)? @ -Differential Dyspnea: Coronary syndrome, arrhythmia, tamponade, asthma, COPD, pulmonary embolism, pneumonia, pneumothorax, pulmonary effusion, anaphylaxis, diabetic ketoacidosis, flailed chest, pulmonary contusion, diaphragmatic rupture, anemia, neuromuscular, this is not meant to be an all-inclusive list. EKG interpreted by me (3pts min.). @ -As above X-rays interpreted by me (1pt min.). @ -Chest x-ray shows cardiomegaly CT interpreted by me (1pt min.). @ -None done U/S interpreted by me (1pt. min.). @ -None done What testing was considered but not performed or refused? (CT, X-rays, U/S, labs)? Why? @ -None What meds were considered but not given or refused? Why? @ -None Did you discuss the management of the patient with other professionals (professionals i.e. , PA, RETURN CHECKER, lab, RT, psych nurse, social and political studies professor, deputy coroner, teacher, plant protection officer, case checker)? Give summary @ -Case was discussed with Dr. Chacon who will admit covering hospital call. He does request ordering echo as well. Was smoking cessation discussed for >3mins.? @ -No Was critical care preformed (if so, how long)? @ -No Were there social determinants of health that impacted care today? How? (Homelessness, low income, unemployed, alcoholism, drug addiction, transportation, low edu. Level, literacy, decrease access to med. care, retirement, re hab)? @ -No Was there de-escalation of care discussed even if they declined (Discuss DNR or withdrawal of care, Hospice)? DNR status @ -No What co-morbidities impacted this encounter? (DM, HTN, Smoking, COPD, CAD, Cancer, CVA, ARF, Chemo, Hep., AIDS, mental health diagnosis, sleep apnea, morbid obesity)? @ -None Was patient admitted / discharged? Hospital course, mention meds given and route, prescriptions, significant lab abnormalities, going to OR and other pertinent info. @ -Patient presents with generalized edema and associated dyspnea. Chest x-ray does not reveal significant fluid overload. Patient will be admitted for diuresis and echo and paracentesis. Patient reevaluated and updated Undiagnosed new problem with uncertain prognosis? @ -No Drug Therapy requiring intensive monitoring for toxicity (Heparin, Nitro, Insulin, Cardizem)? @ -No Were any procedures done? @ -No Diagnosis/symptom? @ -Anasarca Acute, or Chronic, or Acute on Chronic? @ -Acute Uncomplicated (without systemic symptoms) or Complicated (systemic symptoms)? @ -Default Side effects of treatment? @ -No Exacerbation, Progression, or Severe Exacerbation? @ -No Poses a threat to life or bodily function? How? (Chest pain, [place], [place], pneumonia, PE, COPD, DKA, ARF, appy, cholecystitis, CVA, Diverticulitis, Homicidal, Suicidal, threat to staff... and all critical care pts) @ -No - Lab Data Result diagrams: 04/01/24 14:30 04/01/24 14:30 Lab Results 04/01/24 04/01/24 04/01/24 Range/Units 14:30 14:30 14:30 WBC 13.8 H (3.8-10.6) k/uL RBC 4.36 (3.80-5.40) m/uL Hgb 14.8 (11.4-16.0) gm/dL Hct 46.9 H (34.0-46.0) % MCV 107.6 H (80.0-100.0) fL MCH 34.0 (25.0-35.0) pg MCHC 31.6 (31.0-37.0) g/dL RDW 17.6 H (11.5-15.5) % Plt Count 138 L (150-450) k/uL MPV 8.8 Neutrophils % 80 % Lymphocytes % 7 % Monocytes % 11 % Eosinophils % 0 % Basophils % 0 % Neutrophils # 11.0 H (1.3-7.7) k/uL Lymphocytes # 1.0 (1.0-4.8) k/uL Monocytes # 1.5 H (0-1.0) k/uL Eosinophils # 0.0 (0-0.7) k/uL Basophils # 0.0 (0-0.2) k/uL Manual Slide Review Performed Anisocytosis Slight Macrocytosis Marked A PT 12.6 H (10.0-12.5) sec INR 1.2 H (<1.2) APTT 25.0 (22.0-30.0) sec Sodium 132 L (137-145) mmol/L Potassium 3.7 (3.5-5.1) mmol/L Chloride 92 L (98-107) mmol/L Carbon Dioxide 34 H (22-30) mmol/L Anion Gap 6 mmol/L BUN 14 (7-17) mg/dL Creatinine 0.67 (0.52-1.04) mg/dL Est GFR (CKD-EPI)AfAm >90 (>60 ml/min/1.73 sqM) Est GFR (CKD-EPI)NonAf >90 (>60 ml/min/1.73 sqM) Glucose 96 (74-99) mg/dL Plasma Lactic Acid Oscar (0.7-2.0) mmol/L Calcium 8.3 L (8.4-10.2) mg/dL Magnesium 1.9 (1.6-2.3) mg/dL Total Bilirubin 3.1 H (0.2-1.3) mg/dL AST 83 H (14-36) U/L ALT 29 (4-34) U/L Alkaline Phosphatase 240 H (38-126) U/L Troponin I (0.000-0.034) ng/mL NT-Pro-B Natriuret Pep 1590 pg/mL Total Protein 6.7 (6.3-8.2) g/dL Albumin 2.7 L (3.5-5.0) g/dL 04/01/24 04/01/24 Range/Units 14:30 14:30 WBC (3.8-10.6) k/uL RBC (3.80-5.40) m/uL Hgb (11.4-16.0) gm/dL Hct (34.0-46.0) % MCV (80.0-100.0) fL MCH (25.0-35.0) pg MCHC (31.0-37.0) g/dL RDW (11.5-15.5) % Plt Count (150-450) k/uL MPV Neutrophils % % Lymphocytes % % Monocytes % % Eosinophils % % Basophils % % Neutrophils # (1.3-7.7) k/uL Lymphocytes # (1.0-4.8) k/uL Monocytes # (0-1.0) k/uL Eosinophils # (0-0.7) k/uL Basophils # (0-0.2) k/uL Manual Slide Review Anisocytosis Macrocytosis PT (10.0-12.5) sec INR (<1.2) APTT (22.0-30.0) sec Sodium (137-145) mmol/L Potassium (3.5-5.1) mmol/L Chloride (98-107) mmol/L Carbon Dioxide (22-30) mmol/L Anion Gap mmol/L BUN (7-17) mg/dL Creatinine (0.52-1.04) mg/dL Est GFR (CKD-EPI)AfAm (>60 ml/min/1.73 sqM) Est GFR (CKD-EPI)NonAf (>60 ml/min/1.73 sqM) Glucose (74-99) mg/dL Plasma Lactic Acid Oscar 1.9 (0.7-2.0) mmol/L Calcium (8.4-10.2) mg/dL Magnesium (1.6-2.3) mg/dL Total Bilirubin (0.2-1.3) mg/dL AST (14-36) U/L ALT (4-34) U/L Alkaline Phosphatase (38-126) U/L Troponin I <0.012 (0.000-0.034) ng/mL NT-Pro-B Natriuret Pep pg/mL Total Protein (6.3-8.2) g/dL Albumin (3.5-5.0) g/dL Disposition Clinical Impression: Anasarca Disposition: ADMITTED IP TO THIS HOSP Is patient prescribed a controlled substance at d/c from ED?: No Referrals: Daniel Miller DO [Primary Care Provider] - 1-2 days Time of Disposition: 15:33
--- NOTE | 2024-04-01 13:43 | XR ---
EXAMINATION TYPE: XR chest 2V DATE OF EXAM: 04/01/2024 1:30 PM COMPARISON: None. CLINICAL INDICATION: Female, 68 years old with history of difficulty breathing, TECHNIQUE: XR chest 2V view(s) obtained. FINDINGS: The heart size is enlarged. The pulmonary vasculature is normal. The lungs are clear. IMPRESSION: 1. Cardiomegaly. 2. No acute pulmonary process. [facility], Workstation: [facility], 04/01/2024 1:41 PM
[2024-04-01 15:00] LABS: ALT 29 U/L (4-34); AST 83 U/L (14-36); African American GFR (CKD) >90 (>60 ml/min/1.73 sqM); Albumin 2.7 g/dL (3.5-5.0); Alkaline Phosphatase 240 U/L (38-126); Anion Gap 6 mmol/L; Blood Urea Nitrogen 14 mg/dL (7-17); Calcium 8.3 mg/dL (8.4-10.2); Carbon Dioxide 34 mmol/L (22-30); Chloride 92 mmol/L (98-107); Glucose 96 mg/dL (74-99); Magnesium 1.9 mg/dL (1.6-2.3); Non-African American GFR(CKD) >90 (>60 ml/min/1.73 sqM); Potassium 3.7 mmol/L (3.5-5.1); Sodium 132 mmol/L (137-145); Total Bilirubin 3.1 mg/dL (0.2-1.3); Total Protein 6.7 g/dL (6.3-8.2)
[2024-04-01] MEDS: MORPHINE SULFATE 4 MG/ML SYRINGE IVP STA (15:03)
[2024-04-01] MEDS: FUROSEMIDE 10 MG/ML 4 ML VIAL IV STA (15:03)
[2024-04-01 15:04] LABS: Anisocytosis Slight; Basophils % (A) 0 %; Eosinophils % (A) 0 %; HCT 46.9 % (34.0-46.0); HGB 14.8 gm/dL (11.4-16.0); Lymphocytes % (A) 7 %; MCHC 31.6 g/dL (31.0-37.0); MCV 107.6 fL (80.0-100.0); Macrocytosis Marked; Mean Platelet Volume 8.8; Monocytes # (A) 1.5 k/uL (0-1.0); Monocytes % (A) 11 %; Neutrophils % (A) 80 %; Platelet Count 138 k/uL (150-450); RBC 4.36 m/uL (3.80-5.40); RDW 17.6 % (11.5-15.5); WBC 13.8 k/uL (3.8-10.6)
[2024-04-01 15:07] LABS: INR 1.2 (<1.2); Prothrombin Time 12.6 sec (10.0-12.5)
[2024-04-01 15:09] LABS: NT-Pro-B-Type Natriuretic Pept 1590 pg/mL
[2024-04-01] MEDS ORDERED: chlordiazePOXIDE 25 MG CAP PO PRN ×4 (16:22)
--- NOTE | 2024-04-01 16:42 | P.HPIM ---
History of Present Illness H&P Date: 04/01/24 Patient is a 68-year-old female with past medical history of alcohol use disorder, CAD, liver cirrhosis, pulmonary hypertension history of tobacco use disorder (quit 1-1/2-year ago), who presents with generalized swelling and shortness of breath. She started noticing swelling of her extremities, abdominal wall and chest around 2 weeks ago on, it has been progressively worsening after the appointment she decided to come to the ER for evaluation. She has been having shortness of breath for several years and also recently noticed significant worsening, she gets short of breath with minimal exertion, she is now minimizing her physical activity and only makes couple steps, mostly sits in the chair. She denied fever, although feels chills, denies chest pain or pressure, no nausea or vomiting, she says that her abdomen started hurting on the day after she presented to the ER. She denies bowel habit changes, last BM 04/01, no dysuria, no hematuria or blood in stool. She states that she only had 1 episode in the past when her abdomen was very swollen, she says that she does not follow with owner, does not have a formal diagnosis of liver cirrhosis she is aware of. Patient has been drinking for the past 50 years, now 3-4 drinks a day, last drink several days ago, no history of DTs, alcohol withdrawal, alcohol withdrawal seizures. ER course: Patient was afebrile, heart rate in low 100s, initial BP 152/69, she was satting at 90% on room air, started on nasal cannula 4 L. Lab work significant for leukocytosis 13.8, hemoglobin 14.8, MCV 107.6, platelet count 138, INR 1.2, sodium 132, creatinine normal 0.67, magnesium 1.9, AST elevated 83, ALT normal 29, ALT, and phosphatase 240, troponin negative, proBNP 1590. EKG showed sinus tachycardia with HR 100s, low voltage QRS complexes Patient was given Lasix IV 40 in the ER. She will be admitted for further evaluation of anasarca, IR consult for possible paracentesis, TTE to evaluate for possible pericardial effusion Pertinent positives and negatives as discussed in HPI, a complete review of systems was performed and all other systems are negative. Patient seen and examined at bedside. Vital signs reviewed General: Obese, anasarca Derm: warm, dry Head: atraumatic, normocephalic, symmetric Eyes: EOMI, no lid lag, anicteric sclera, pupils equal round reactive to light ENT: Nose and ears atraumatic Neck: No thyromegaly, supple Mouth: no lip lesion, mucus membranes moist Cardiovascular: S1S2 reg, no murmur, no edema Lungs: clear to auscultation bilateral, no rhonchi, no rales, no wheeze, no accessory muscle use Abdominal distended, fluid wave, anasarca Ext: All 4 extremities are swollen, pitting edema, bilateral lower extremities edema erythematous and swollen Neuro: CN II-XII grossly intact Psych: Alert, oriented, appropriate affect Assessment/Plan: Acute hypoxic respiratory failure secondary to fluid volume overload in the settings of anasarca from liver cirrhosis Pulmonary hypertension Leukocytosis Thrombocytopenia likely from liver cirrhosis Macrocytosis Low-voltage QRS complex, rule out pericardial effusion, no tamponade physiology present Hyperbilirubinemia -Patient's BNP is not elevated, chest x-ray was described as no acute process, however, on my interpretation there is some pulmonary vascular congestion and possible small pleural effusion -Will diurese patient with IV Lasix 40 every 8 hours for today, strict I's and O's -TTE to evaluate for EF, diastolic heart failure, effusion -IR for paracentesis -Procalcitonin ordered, TSH ordered -Ordered B12, B9 to evaluate macrocytosis -Child Albright score 11 points, life expectancy 1 to 3 years, MELD score 18 points with 3 to 4% estimated 90-day mortality -no hx of SBP in the past; will start or ciprofloxacin for primary prevention given high Child Albright score, patient has cephalexin allergy thus can't be star donna on Ceftriaxone -abdominal US ordered -monitor CMP and CBC daily Alcohol use disorder -Patient has 3-4 drinks a day for 50 years -Interested in quitting, last drink several days ago -CIWA protocol with Librium -Multivitamins CAD -Patient is not on aspirin or statins -She needs to follow-up with primary care physician Obesity: Would benefit from outpatient sleep study, recommend weight loss The patient is admitted with an anticipated [greater] than 2 midnight stay as [inpatient/observation] status for evaluation of acute hypoxic respiratory failure, anasarca CODE STATUS full code DVT prophylaxis: SCD Anticipated discharge date: >[address]: TBD A total of 40 minutes was spent on the care of this complex patient more than 50% of the time was spent in counseling and care coordination. Past Medical History Past Medical History: Coronary Artery Disease (CAD), Myocardial Infarction ([place]) Additional Past Medical History / Comment(s): pulmonary fibrosis, liver cirrhosis, PNeuropathy Last Myocardial Infarction Date:: 2012 History of Any Multi-Drug Resistant Organisms: None Reported Past Surgical History: Heart Catheterization Past Anesthesia/Blood Transfusion Reactions: No Reported Reaction Past Psychological History: No Psychological Hx Reported Smoking Status: Former smoker Past Alcohol Use History: Daily Past Drug Use History: None Reported Medications and Allergies Home Medications Medication Instructions Recorded Confirmed Type Ibuprofen [Motrin Ib] 200 mg PO BID 04/01/24 04/01/24 History Allergies Allergy/AdvReac Type Severity Reaction Status Date / Time cephalexin [From Keflex] Allergy Rash/Hives Verified 04/01/24 16:14 heparin Allergy Thrombocyto Verified 04/01/24 16:14 penia Physical Exam Vitals: Vital Signs Temp Pulse Resp BP Pulse Ox 04/01/24 15:09 97 18 105/61 96 04/01/24 13:10 101 H 18 107/67 95 04/01/24 12:25 98.7 F 104 H 18 152/69 90 L Intake and Output 04/01/24 04/01/24 04/01/24 06:59 14:59 22:59 Other: Weight 72.575 kg Results CBC & Chem 7: 04/01/24 14:30 04/01/24 14:30 Labs: Abnormal Lab Results - Last 24 Hours (Table) 04/01/24 04/01/24 04/01/24 Range/Units 14:30 14:30 14:30 WBC 13.8 H (3.8-10.6) k/uL Hct 46.9 H (34.0-46.0) % MCV 107.6 H (80.0-100.0) fL RDW 17.6 H (11.5-15.5) % Plt Count 138 L (150-450) k/uL Neutrophils # 11.0 H (1.3-7.7) k/uL Monocytes # 1.5 H (0-1.0) k/uL Macrocytosis Marked A PT 12.6 H (10.0-12.5) sec INR 1.2 H (<1.2) Sodium 132 L (137-145) mmol/L Chloride 92 L (98-107) mmol/L Carbon Dioxide 34 H (22-30) mmol/L Calcium 8.3 L (8.4-10.2) mg/dL Total Bilirubin 3.1 H (0.2-1.3) mg/dL AST 83 H (14-36) U/L Alkaline Phosphatase 240 H (38-126) U/L Albumin 2.7 L (3.5-5.0) g/dL
[2024-04-01 17:14] LABS: Appearance,Urine Clear (Clear); Bilirubin,Urine Negative (Negative); Blood,Urine Negative (Negative); Color,Urine Colorless; Glucose,Urine (UA) Negative (Negative); Ketones,Urine Negative (Negative); Leukocyte Esterase,Urine Negative (Negative); Nitrite,Urine Negative (Negative); PH, Urine 6.5 (5.0-8.0); Protein,Urine Negative (Negative); Specific Gravity,Urine 1.005 (1.001-1.035); Urobilinogen,Urine <2.0 mg/dL (<2.0)
[2024-04-01] MEDS: CIPROFLOXACIN HCL 500 MG TAB PO SCH (17:25)
[2024-04-01] MEDS: HYDROcodone/APAP 5-325MG 1 EACH TAB PO PRN (20:47)
[2024-04-02] MEDS: FUROSEMIDE 10 MG/ML 4 ML VIAL IV SCH (00:32)
[2024-04-02] MEDS: FOLIC ACID 1 MG TAB PO SCH (08:01)
[2024-04-02] MEDS: THIAMINE 100 MG TAB PO SCH (08:01)
[2024-04-02] MEDS: MULTIVITAMINS, THERA 1 EACH TAB PO SCH (08:01)
--- NOTE | 2024-04-02 08:25 | US ---
EXAMINATION TYPE: US abdomen limited DATE OF EXAM: 04/02/2024 COMPARISON: NONE CLINICAL INDICATION: Female, 68 years old with history of liver structure, ascitics; Patient states f luid build up x few weeks; Hx cholecystectomy; Patient denies any other signs, symptoms, or relevant history TECHNIQUE: Grayscale and color Doppler imaging of the right upper quadrant was performed. FINDINGS: EXAM MEASUREMENTS: Liver Length: 19.9 cm Gallbladder: Surgically absent CBD: Unable to insonate Right Kidney: 11.0 x 5.0 x 5.2 cm PATTERNMAKER NOTES:Difficult exam due to patient body habitus and edematous skin Pancreas: Limited visualization Liver: Limited visualization Gallbladder: Surgically absent Evidence for sonographic Maynard's sign: No CBD: Unable to insonate Right Kidney: Limited visualization IMPRESSION: Very difficult and technically limited exam as above. Hepatomegaly at 19.9 cm. Gallbladder surgically absent. Unable to adequately visualize the bile duct or pancreas. No appreciable abdominal ascites fluid. [facility], , 04/02/2024 8:23 AM
--- NOTE | 2024-04-02 13:06 | CA ---
Transthoracic Echo Report Name: Flory Hernandez Age: 68 Gender: F : 1955 Exam Date: 04/02/2024 09:30 Exam Location: [place] [facility] Ht (in): 65 Wt (lb): 160 Ordering Physician: Alexei Cameron DO Attending/Referring Phys: Internal Control Manager Amy Euceda RDCS Procedure CPT: Indications: dyspnea Cardiac Hx: Technical Quality: Fair Contrast 1: Total Dose (mL): Contrast 2: Total Dose (mL): MEASUREMENTS (Male / Female) Normal Values 2D ECHO LV Diastolic Diameter PLAX 4.3 cm 4.2 - 5.9 / 3.9 - 5.3 cm LV Systolic Diameter PLAX 2.8 cm IVS Diastolic Thickness 0.8 cm 0.6 - 1.0 / 0.6 - 0.9 cm LVPW Diastolic Thickness 1.0 cm 0.6 - 1.0 / 0.6 - 0.9 cm LV Relative Wall Thickness 0.4 RV Internal Dim ED PLAX 3.8 cm LA Systolic Diameter LX 3.8 cm 3.0 - 4.0 / 2.7 - 3.8 cm M-MODE Aortic Root Diameter MM 3.1 cm AV Cusp Separation MM 2.0 cm DOPPLER MV Area PHT 2.4 cm??? Mitral E Point Velocity 96.1 cm/s Mitral A Point Velocity 130.0 cm/s Mitral E to A Ratio 0.7 MV Deceleration Time 317.1 ms TR Peak Velocity 352.9 cm/s TR Peak Gradient 49.8 mmHg Right Ventricular Systolic Press 62.0 mmHg FINDINGS Left Ventricle Left ventricular ejection fraction is estimated at 55-60 %. Left ventricular cavity size normal. Left ventricular wall thickness normal. Normal left ventricular wall motion. Right Ventricle Moderate right ventricular dilatation. Severe pulmonary hypertension. Right ventricular systolic pressure estimated at 62 mm hg. Right Atrium Normal right atrial size. No right atrial thrombus or mass seen. Left Atrium Normal left atrial size. No left atrial thrombus or mass present. Mitral Valve Mitral valve thickened. Mild mitral annular calcification. Trace mitral regurgitation. Aortic Valve Trileaflet aortic valve. No aortic valve stenosis or regurgitation. Tricuspid Valve Structurally normal tricuspid valve. Mild tricuspid regurgitation. Pulmonic Valve Pulmonic valve not well visualized. Pericardium No pericardial effusion. Aorta Normal size aortic root and proximal ascending aorta. CONCLUSIONS Technically difficult study for interpretation Normal LV systolic function Severe pulmonary hypertension Enlarged right ventricle Poorly visualized intracardiac valves Previewed by: Dr. Moses Molina MD (Electronically Signed) Final Date: 02 April 2024 13:06
--- NOTE | 2024-04-02 13:39 | XR ---
EXAMINATION TYPE: XR chest 1V portable DATE OF EXAM: 04/02/2024 12:54 PM COMPARISON: 04/01/2024 CLINICAL INDICATION: Female, 68 years old with history of shortness of breath, pulm edema?, , FINDINGS: Heart mildly enlarged. Diffuse interstitial and vascular density. No denisa consolidation or pleural e ffusion. IMPRESSION: Mild cardiomegaly with pulmonary vascular congestion. [facility], , 04/02/2024 1:37 PM
[2024-04-02 14:33] VITALS: BMI 26.6
--- NOTE | 2024-04-02 15:05 | P.PN ---
Subjective Progress Note Date: 04/02/24 Hospital Course: Patient is a 68-year-old female with past medical history of alcohol use diso rder, CAD, liver cirrhosis, pulmonary hypertension history of tobacco use disorder (quit 1-1/2-year ago), who presents with generalized swelling and shortness of breath. She started noticing swelling of her extremities, abdominal wall and chest around 2 weeks ago on, it has been progressively worse juan carlos after the appointment she decided to come to the ER for evaluation. She has been having shortness of breath for several years and also recently noticed significant worsening, she gets short of breath with minimal exertion, she is now minimizing her physical activity and only makes couple steps, mostly sits in the chair. She denied fever, although feels chills, denies chest pain or pressure, no nausea or vomiting, she says that her abdomen started hurting on the day after she presented to the ER. She denies bowel habit changes, last BM 04/01, no dysuria, no hematuria or blood in stool. 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 Patient has been drinking for the past 50 years, now 3-4 drinks a day, last drink several days ago, no history of DTs, alcohol withdrawal, alcohol withdrawal seizures. ER course: Patient was afebrile, heart rate in low 100s, initial BP 152/69, she was satting at 90% on room air, started on nasal cannula 4 L. Lab work significant for leukocytosis 13.8, hemoglobin 14.8, MCV 107.6, platelet count 138, INR 1.2, sodium 132, creatinine normal 0.67, magnesium 1.9, AST elevated 83, ALT normal 29, ALT, and phosphatase 240, troponin negative, proBNP 1590. EKG showed sinus tachycardia with HR 100s, low voltage QRS complexes Patient was given Lasix IV 40 in the ER. She will be admitted for further evaluation of anasarca, IR consult for possible paracentesis-not enough fluid for paracentesis, TTE : EF 55 to 60%, normal LV wall motion, moderate RV dilation, severe pulmonary hypertension, consulted cardiology Pertinent Imaging: As mentioned above: TTE, abdominal ultrasound. Chest x-ray showed pulmonary vascular congestion with cardiomegaly Subjective: Patient states that her swelling is somewhat down today, complains of generalized pain, shortness of breath has improved Pertinent positives and negatives as discussed above, a complete review of systems was performed and all other systems are negative. Vitals Signs Reviewed. General: Obese, anasarca Derm: warm, dry Head: atraumatic, normocephalic, symmetric Eyes: EOMI, no lid lag, anicteric sclera, pupils equal round reactive to light ENT: Nose and ears atraumatic Neck: No thyromegaly, supple Mouth: no lip lesion, mucus membranes moist Cardiovascular: S1S2 reg, no murmur, no edema Lungs: clear to auscultation bilateral, no rhonchi, no rales, no wheeze, no accessory muscle use Abdominal distended, fluid wave, anasarca Ext: All 4 extremities are swollen, pitting edema, bilateral lower extremities edema erythematous and swollen Neuro: CN II-XII grossly intact Psych: Alert, oriented, appropriate affect Data Reviewed Today: Pertinent Labs: Blood work from this a.m. pending Assessment and Plan: Acute hypoxic respiratory failure secondary to fluid volume overload in the settings of anasarca from liver cirrhosis Severe pulmonary hypertension Leukocytosis Thrombocytopenia likely from liver cirrhosis Macrocytosis, folate deficiency Low-voltage QRS complex Hyperbilirubinemia -Patient's BNP is not elevated, chest x-ray was described as no acute process, however, on my interpretation there is some pulmonary vascular congestion and possible small pleural effusion -Will diurese patient with IV Lasix 40 every 8 hours for today, strict I's and O's -IR consult for possible paracentesis-not enough fluid for paracentesis, TTE : EF 55 to 60%, normal LV wall motion, moderate RV dilation, severe pulmonary hypertension, -IR for paracentesis: No ascites on ultrasound -Procalcitonin elevated 1.52, TSH normal -No B12 deficiency, folate low less than 2, will start on folate supplement -Child Albright score 11 points, life expectancy 1 to 3 years, MELD score 18 points with 3 to 4% estimated 90-day mortality -no hx of SBP in the past; will start or ciprofloxacin for primary prevention given high Child Albright score, patient has cephalexin allergy thus can't be started on Ceftriaxone -monitor CMP and CBC daily -Cardiology consult Alcohol use disorder -Patient has 3-4 drinks a day for 50 years -Interested in quitting, last drink several days ago -[facility] protocol with Librium -Multivitamins CAD -Patient is not on aspirin or statins -She needs to follow-up with primary care physician Obesity: Would benefit from outpatient sleep study, recommend weight loss CODE STATUS full code DVT prophylaxis: SCD Anticipated discharge date: >[address]: TBD Objective - Vital Signs Vital signs: Vital Signs Temp 97.9 F 04/02/24 07:00 Pulse 96 04/02/24 07:00 Resp 16 04/02/24 08:00 BP 97/57 04/02/24 07:00 Pulse Ox 91 L 04/02/24 07:00 FiO2 Intake & Output 04/01/24 04/02/24 04/02/24 18:59 06:59 18:59 Output Total 800 Balance -800 Weight 72.575 kg 72.575 kg Output: Urine 800 Other: Voiding Method Diaper Diaper External Catheter External Catheter # Bowel Movements 0 - Labs CBC & Chem 7: 04/01/24 14:30 04/01/24 14:30 Labs: Abnormal Lab Results - Last 24 Hours (Table) 04/01/24 04/01/24 04/01/24 Range/Units 14:30 14:30 16:13 WBC 13.8 H (3.8-10.6) k/uL Hct 46.9 H (34.0-46.0) % MCV 107.6 H (80.0-100.0) fL RDW 17.6 H (11.5-15.5) % Plt Count 138 L (150-450) k/uL Neutrophils # 11.0 H (1.3-7.7) k/uL Monocytes # 1.5 H (0-1.0) k/uL Macrocytosis Marked A PT 12.6 H (10.0-12.5) sec INR 1.2 H (<1.2) Ammonia (<30) umol/L Vitamin B12 1254.0 H (200.0-944.0) pg/mL Folate (4.40-31.00) ng/mL Procalcitonin (0.02-0.50) ng/mL 04/01/24 04/01/24 04/01/24 Range/Units 16:13 16:13 16:13 WBC (3.8-10.6) k/uL Hct (34.0-46.0) % MCV (80.0-100.0) fL RDW (11.5-15.5) % Plt Count (150-450) k/uL Neutrophils # (1.3-7.7) k/uL Monocytes # (0-1.0) k/uL Macrocytosis PT (10.0-12.5) sec INR (<1.2) Ammonia 59 H (<30) umol/L Vitamin B12 (200.0-944.0) pg/mL Folate <2.00 L (4.40-31.00) ng/mL Procalcitonin 1.52 H (0.02-0.50) ng/mL
[2024-04-02] MEDS ORDERED: FOLIC ACID 1 MG TAB PO SCH (15:15)
[2024-04-02] MEDS: GABAPENTIN 100 MG CAP PO SCH (16:58)
[2024-04-02 17:05] LABS: ALT 26 U/L (4-34); African American GFR (CKD) >90 (>60 ml/min/1.73 sqM); Albumin 2.5 g/dL (3.5-5.0); Albumin/Globulin Ratio 0.6; Anion Gap 5 mmol/L; Blood Urea Nitrogen 15 mg/dL (7-17); Calcium 8.1 mg/dL (8.4-10.2); Carbon Dioxide 38 mmol/L (22-30); Chloride 92 mmol/L (98-107); Globulin 3.9 g/dL; Glucose 104 mg/dL (74-99); Non-African American GFR(CKD) 84 (>60 ml/min/1.73 sqM); Sodium 135 mmol/L (137-145); Total Bilirubin 2.5 mg/dL (0.2-1.3); Total Protein 6.4 g/dL (6.3-8.2)
[2024-04-02 17:07] LABS: AST 69 U/L (14-36); Alkaline Phosphatase 217 U/L (38-126); Potassium 3.3 mmol/L (3.5-5.1)
[2024-04-02 17:11] LABS: Anisocytosis Slight; Basophils % (A) 0 %; Eosinophils # (A) 0.1 k/uL (0-0.7); Eosinophils % (A) 1 %; HCT 45.2 % (34.0-46.0); HGB 14.6 gm/dL (11.4-16.0); Hypochromasia Slight; Lymphocytes # (A) 0.8 k/uL (1.0-4.8); Lymphocytes % (A) 8 %; MCHC 32.4 g/dL (31.0-37.0); MCV 107.9 fL (80.0-100.0); Macrocytosis Marked; Mean Platelet Volume 9.6; Monocytes % (A) 11 %; Neutrophils # (A) 7.7 k/uL (1.3-7.7); Neutrophils % (A) 78 %; Platelet Count 124 k/uL (150-450); RBC 4.19 m/uL (3.80-5.40); RDW 17.6 % (11.5-15.5); WBC 9.8 k/uL (3.8-10.6)
[2024-04-02] MEDS ORDERED: Potassium Replacement Protocol 1 EACH MISC MISCELLANE PRN (18:23)
[2024-04-02] MEDS: POTASSIUM CHLORIDE ER 20 MEQ TAB.ER PO SCH (18:39)
[2024-04-02] MEDS ORDERED: POTASSIUM CHLORIDE ER 20 MEQ TAB.ER PO SCH (19:00)
[2024-04-03 08:57] LABS: ALT 24 U/L (8-44); AST 67 U/L (13-35); Albumin 2.5 g/dL (3.8-4.9); Albumin/Globulin Ratio 0.66 Ratio (1.60-3.17); Alkaline Phosphatase 226 U/L (41-126); BUN/Creat Ratio 17.86 Ratio (12.00-20.00); Blood Urea Nitrogen 12.5 mg/dL (9.0-27.0); Calcium 8.2 mg/dL (8.7-10.3); Carbon Dioxide 38.5 mmol/L (21.6-31.8); Chloride 94 mmol/L (96-109); Globulin 3.8 g/dL (1.6-3.3); Glucose 88 mg/dL (70-110); Potassium 3.1 mmol/L (3.5-5.5); Sodium 142 mmol/L (135-145); Total Bilirubin 1.6 mg/dL (0.3-1.2); Total Protein 6.3 g/dL (6.2-8.2)
[2024-04-03 09:01] LABS: HCT 44.5 % (37.2-46.3); HGB 14.8 g/dL (12.0-15.0); MCH 34.1 pg (27.0-32.0); MCHC 33.3 g/dL (32.0-37.0); MCV 102.5 FL (80.0-97.0); NRBC Per 100 WBC 0 X 10*3/uL (0.00-0.01); Platelet Count 147 X 10*3/uL (140-440); RBC 4.34 X 10*6/uL (4.10-5.20); RDW 19.4 % (11.5-14.5); WBC 9.01 X 10*3/uL (4.50-10.00)
[2024-04-03 09:40] LABS: Basophils # (A) 0.04 X 10*3/uL (0.00-0.10); Basophils % (A) 0.4 %; Eosinophils # (A) 0.12 X 10*3/uL (0.04-0.35); Eosinophils % (A) 1.3 %; Lymphocytes # (A) 1.87 X 10*3/uL (0.90-5.00); Lymphocytes % (A) 20.8 %; Macrocytosis (M) 2+ (None Seen); Monocytes # (A) 1.56 X 10*3/uL (0.20-1.00); Monocytes % (A) 17.3 %; Neutrophils # (A) 5.37 X 10*3/uL (1.80-7.70); Neutrophils % (A) 59.6 %
--- NOTE | 2024-04-03 11:47 | P.PN ---
Subjective Progress Note Date: 04/03/24 Principal diagnosis: Patient is a 68-year-old female with past medical history of alcohol use disorder, CAD, liver cirrhosis, pulmonary hypertension history of tobacco use disorder (quit 1-1/2-year ago), who presents with generalized swelling and shortness of breath. She started noticing swelling of her extremities, abdominal wall and chest around 2 weeks ago on, it has been progressively worsening after the appointment she decided to come to the ER for evaluation. She has been having shortness of breath for several years and also recently noticed significant worsening, she gets short of breath with minimal exertion, she is now minimizing her physical activity and only makes couple steps, mostly sits in the chair. She denied fever, although feels chills, denies chest pain or pressure, no nausea or vomiting, she says that her abdomen started hurting on the day after she presented to the ER. She denies bowel habit changes, last BM 04/01, no dysuria, no hematuria or blood in stool. She states that she only had 1 episode in the past when her abdomen was very swollen, she says that she does not follow with resource conservation specialist, does not have a formal diagnosis of liver cirrhosis she is aware of. Patient has been drinking for the past 50 years, now 3-4 drinks a day, last drink several days ago, no history of DTs, alcohol withdrawal, alcohol withdrawal seizures. ER course: Patient was afebrile, heart rate in low 100s, initial BP 152/69, she was satting at 90% on room air, started on nasal cannula 4 L. Lab work significant for leukocytosis 13.8, hemoglobin 14.8, MCV 107.6, platelet count 138, INR 1.2, sodium 132, creatinine normal 0.67, magnesium 1.9, AST elevated 83, ALT normal 29, ALT, and phosphatase 240, troponin negative, proBNP 1590. EKG showed sinus tachycardia with HR 100s, low voltage QRS complexes Patient was given Lasix IV 40 in the ER and she was given additional diuretics. Echocardiogram had reported LVEF of 55 to 60% with RVSP noted to be 62 mmHg Patient seen and examined. She reports that she has been worked up at [facility] for pulmonary hypertension. She reports she was unable to clarify the etiology of her pulm hypertension. Has not seen [facility]. Reports was diagnosed with possible cirrhosis Objective - Vital Signs Vital signs: Vital Signs Temp 97.7 F 04/03/24 07:00 Pulse 95 04/03/24 07:00 Resp 17 04/03/24 08:00 BP 111/64 04/03/24 07:00 Pulse Ox 93 L 04/03/24 07:00 FiO2 Intake & Output 04/02/24 04/03/24 04/03/24 18:59 06:59 18:59 Output Total 1370 550 900 Balance -1370 -550 -900 Weight 72.575 kg Output: Urine 1370 550 900 Other: Voiding Method Diaper Diaper Diaper External Catheter External Catheter External Catheter - Exam General: Obese, anasarca Derm: warm, dry Head: atraumatic, normocephalic, symmetric Eyes: EOMI, no lid lag, anicteric sclera, pupils equal round reactive to light ENT: Nose and ears atraumatic Neck: No thyromegaly, supple Mouth: no lip lesion, mucus membranes moist Cardiovascular: S1S2 reg, no murmur, no edema Lungs: clear to auscultation bilateral, no rhonchi, no rales, no wheeze, no accessory muscle use Abdominal distended, fluid wave, anasarca Ext: All 4 extremities are swollen, pitting edema, bilateral lower extremities edema erythematous and swollen Neuro: All extremity spontaneously Psych: Alert, oriented, appropriate affect - Labs CBC & Chem 7: 04/03/24 04:28 04/03/24 04:28 Labs: Abnormal Lab Results - Last 24 Hours (Table) 04/01/24 04/01/24 04/02/24 Range/Units 16:13 16:13 16:31 MCV 107.9 H (80.0-100.0) fL MCH (27.0-32.0) pg RDW 17.6 H (11.5-15.5) % Plt Count 124 L (150-450) k/uL Immature Gran # (0.00-0.04) X 10*3/uL Lymphocytes # 0.8 L (1.0-4.8) k/uL Monocytes # (0.20-1.00) X 10*3/uL Macrocytosis Marked A Macrocytosis (manual) (None Seen) Sodium (137-145) mmol/L Potassium (3.5-5.1) mmol/L Chloride (98-107) mmol/L Carbon Dioxide (22-30) mmol/L Glucose (74-99) mg/dL Calcium (8.4-10.2) mg/dL Total Bilirubin (0.2-1.3) mg/dL AST (14-36) U/L Alkaline Phosphatase (38-126) U/L Albumin (3.5-5.0) g/dL Globulin (1.6-3.3) g/dL Albumin/Globulin Ratio (1.60-3.17) Ratio Vitamin B12 1254.0 H (200.0-944.0) pg/mL Procalcitonin 1.52 H (0.02-0.50) ng/mL 04/02/24 04/03/24 04/03/24 Range/Units 16:31 04:28 04:28 MCV 102.5 H (80.0-100.0) fL MCH 34.1 H (27.0-32.0) pg RDW 19.4 H (11.5-15.5) % Plt Count (150-450) k/uL Immature Gran # 0.05 H (0.00-0.04) X 10*3/uL Lymphocytes # (1.0-4.8) k/uL Monocytes # 1.56 H (0.20-1.00) X 10*3/uL Macrocytosis Macrocytosis (manual) 2+ A (None Seen) Sodium 135 L (137-145) mmol/L Potassium 3.3 L 3.1 L (3.5-5.1) mmol/L Chloride 92 L 94 L (98-107) mmol/L Carbon Dioxide 38 H 38.5 H (22-30) mmol/L Glucose 104 H (74-99) mg/dL Calcium 8.1 L 8.2 L (8.4-10.2) mg/dL Total Bilirubin 2.5 H 1.6 H (0.2-1.3) mg/dL AST 69 H 67 H (14-36) U/L Alkaline Phosphatase 217 H 226 H (38-126) U/L Albumin 2.5 L 2.5 L (3.5-5.0) g/dL Globulin 3.8 H (1.6-3.3) g/dL Albumin/Globulin Ratio 0.66 L (1.60-3.17) Ratio Vitamin B12 (200.0-944.0) pg/mL Procalcitonin (0.02-0.50) ng/mL Assessment and Plan Assessment: Acute hypoxic respiratory failure secondary to fluid volume overload in the settings of anasarca from liver cirrhosis Severe pulmonary hypertension with RVSP noted to be 62 mmHg as per TTE Leukocytosis Thrombocytopenia from alcohol use Macrocytosis, folate deficiency Low-voltage QRS complex Hyperbilirubinemia Pulmonary hypertension possibly from who subgroup 3? Had seen [facility] outpatient for pulm hypertension however no longer followed up with him. -Patient's BNP is not elevated, chest x-ray was described as no acute process, however, on my interpretation there is some pulmonary vascular congestion and possible small pleural effusion Possible cirrhosis -The patient reports that she was diagnosed with possible cirrhosis. Limited ultrasound had revealed no evidence of cirrhosis on the liver. Would recommend serial imaging and if possible may benefit from a FibroScan outpatient Alcohol use disorder -Reports she has been drinking alcohol for approximately 40 years. Reports that beverage of choice has been cards on the night DC CIWA Continue multivitamin thiamine supplementation CAD -Patient is not on aspirin or statins -She needs to follow-up with primary care physician Obesity: Would benefit from outpatient sleep study, recommend weight loss CODE STATUS full code DVT prophylaxis: Lovenox Anticipated discharge date: Saturday Anticipated discharge place: [facility] Time with Patient: Greater than 30
[2024-04-03] MEDS ORDERED: ENOXAPARIN 40 MG/0.4 ML SYRINGE SQ SCH (12:00)
[2024-04-03] MEDS: SPIRONOLACTONE 25 MG TAB PO SCH (12:31)
[2024-04-03] MEDS: POTASSIUM CHLORIDE ER 20 MEQ TAB.ER PO SCH ×2 (12:32→17:47)
--- NOTE | 2024-04-03 15:07 | P.CRDCN ---
History of Present Illness History of present illness: HISTORY OF PRESENT ILLNESS: This is a 68-year-old female with a past medical history significant for liver cirrhosis secondary to alcohol abuse, home oxygen, pulmonary hypertension, and f ormer nicotine dependence. Patient does not follow with a grain distributor. We have been asked to see the patient in consultation for severe pulmonary hypertension and anasarca. Patient examined at the bedside. Patient states over the past few weeks she has been retaining fluid. She states that she was having swelling in her legs, arms, and abdomen. Patient states she did not weigh herself at home so she does not know exactly how much fluid retention she gained. Patient does report a history of pulmonary hypertension. She states that she was seeing a specialist at the [facility] but has stopped seeing all physicians about 7 or 8 years ago. She does report home oxygen use between 3 and 5 L. Patient reports a history of liver cirrhosis due to alcohol abuse. Patient states that she was drinking up until she came into the hospital but plans to stop moving forward. DIAGNOSTICS: - EKG reveals sinus tachycardia with low voltage QRS - Chest xray mild cardiomegaly with pulmonary vascular congestion - Laboratory data: WBC 9.01. Hemoglobin 14.8. Platelet count 147. Sodium 142. Potassium 3.1. BUN 12.5. Creatinine 0.7. Magnesium 1.9. Bilirubin 1.6. TSH 2.460. - Current home cardiac medications include none - Echocardiogram obtained revealing ejection fraction 55 to 60%, severe pulmonary hypertension, RVSP 62 mmHg, trace MR, trace TR REVIEW OF SYSTEMS: At the time of my exam: CONSTITUTIONAL: Denies fever or chills. HEENT: Denies blurred vision, vision changes, or eye pain. Denies hemoptysis CARDIOVASCULAR: Denies chest pain. Denies orthopnea. Denies PND. Denies palpitations RESPIRATORY: Denies shortness of breath. GASTROINTESTINAL: Denies abdominal pain. Denies nausea or vomiting. HEMATOLOGIC: Denies bleeding disorders. GENITOURINARY: Denies any blood in urine. SKIN: Denies pruitis. Denies rash. PHYSICAL EXAM: VITAL SIGNS: Reviewed. GENERAL: Well-developed in no acute distress. HEENT: Head is normocephalic. Pupils are equal, round. Sclerae anicteric. Mucous membranes of the mouth are moist. Neck supple. No JVD or thyromegaly LUNGS: Respirations even and unlabored. Lungs essentially clear to auscultation bilaterally. HEART: Regular rate and rhythm. S1 and S2 heard. ABDOMEN: Soft. Mild distention. Nontender. EXTREMITIES: Normal range of motion. No clubbing or cyanosis. Peripheral pulses intact. Bilateral upper and lower extremity edema noted. NEUROLOGIC: Awake and alert. Oriented x 3. ASSESSMENT: Fluid overload secondary to liver cirrhosis Severe pulm hypertension, patient formally followed at [facility] Chronic hypoxic respiratory failure on home oxygen Alcohol abuse Former nicotine dependence PLAN: 2D echo obtained and reviewed. Patient found to have severe pulm hypertension which she states is a known chronic condition and has previously followed up with [facility]. Instructed patient that she should reestablish with a physician at the [facility]. Continue oral diuretics with Bumex Add Aldactone 25 mg daily Continue to monitor kidney function No further inpatient recommendations from a cardiac standpoint We will sign off. Please reconsult if needed. Nurse practitioner note has been reviewed by physician. Signing provider agrees with the documented findings, assessment, and plan of care documented by DAMPENER as a scribe. Past Medical History Past Medical History: Coronary Artery Disease (CAD), Myocardial Infarction ([place]) Additional Past Medical History / Comment(s): pulmonary fibrosis, liver cirrhos is, PNeuropathy Last Myocardial Infarction Date:: 2012 History of Any Multi-Drug Resistant Organisms: None Reported Past Surgical History: Heart Catheterization Past Anesthesia/Blood Transfusion Reactions: No Reported Reaction Past Psychological History: No Psychological Hx Reported Smoking Status: Former smoker Past Alcohol Use History: Daily Past Drug Use History: None Reported Medications and Allergies Home Medications Medication Instructions Recorded Confirmed Type Ibuprofen [Motrin Ib] 200 mg PO BID 04/01/24 04/01/24 History Allergies Allergy/AdvReac Type Severity Reaction Status Date / Time cephalexin [From Keflex] Allergy Rash/Hives Verified 04/01/24 16:14 heparin Allergy Thrombocyto Verified 04/01/24 16:14 penia Physical Exam Vitals: Vital Signs Temp Pulse Resp BP Pulse Ox 04/03/24 08:00 17 04/03/24 07:00 97.7 F 95 17 111/64 93 L 04/03/24 02:00 97.7 F 83 17 128/72 96 04/02/24 19:51 98.0 F 97 97/68 93 L 04/02/24 17:02 93 L 04/02/24 15:00 97.6 F 95 16 112/69 92 L 04/02/24 14:00 16 Intake and Output 04/02/24 04/03/24 04/03/24 22:59 06:59 14:59 Output Total 1370 550 900 Balance -1370 -550 -900 Output: Urine 1370 550 900 Other: Voiding Method Diaper Diaper Diaper External Catheter External Catheter External Catheter Results 04/03/24 04:28 04/03/24 04:28 Cardiac Enzymes 04/02/24 04/03/24 Range/Units 16:31 04:28 AST 69 H 67 H (14-36) U/L CBC 04/02/24 04/03/24 Range/Units 16:31 04:28 WBC 9.8 9.01 (3.8-10.6) k/uL RBC 4.19 4.34 (3.80-5.40) m/uL Hgb 14.6 14.8 (11.4-16.0) gm/dL Hct 45.2 44.5 (34.0-46.0) % Plt Count 124 L 147 (150-450) k/uL Comprehensive Metabolic Panel 04/02/24 04/03/24 Range/Units 16:31 04:28 Sodium 135 L 142 (137-145) mmol/L Potassium 3.3 L 3.1 L (3.5-5.1) mmol/L Chloride 92 L 94 L (98-107) mmol/L Carbon Dioxide 38 H 38.5 H (22-30) mmol/L BUN 15 12.5 (7-17) mg/dL Creatinine 0.74 0.7 (0.52-1.04) mg/dL Glucose 104 H 88 (74-99) mg/dL Calcium 8.1 L 8.2 L (8.4-10.2) mg/dL AST 69 H 67 H (14-36) U/L ALT 26 24 (4-34) U/L Alkaline Phosphatase 217 H 226 H (38-126) U/L Total Protein 6.4 6.3 (6.3-8.2) g/dL Albumin 2.5 L 2.5 L (3.5-5.0) g/dL Current Medications Generic Name Dose Route Start Last Admin Trade Name Freq PRN Reason Stop Dose Admin Hydrocodone Bitart/Acetaminophen 1 each 04/01/24 18:10 04/02/24 21:14 Hydrocodone/Apap 5-325mg 1 Each Tab PO 1 each Q6HR PRN Administration Pain Bumetanide 1 mg 04/03/24 16:00 Bumetanide 1 Mg Tab PO BID@0900,1600 [facility] Enoxaparin Sodium 40 mg 04/03/24 12:00 Enoxaparin 40 Mg/0.4 Ml Syringe SQ DAILY [facility] Folic Acid 1 mg 04/02/24 09:00 04/03/24 07:45 Folic Acid 1 Mg Tab PO 1 mg DAILY [facility] Administration Gabapentin 100 mg 04/02/24 16:00 04/03/24 07:45 Gabapentin 100 Mg Cap PO 100 mg TID [facility] Administration Miscellaneous Information 1 each 04/02/24 18:23 Potassium Replacement Protocol 1 Each Misc MISCELLANE DAILY PRN Per Protocol Protocol Multivitamins 1 each 04/02/24 09:00 04/03/24 07:45 Multivitamins, Thera 1 Each Tab PO 1 each DAILY [place] Administration Potassium Chloride 20 meq 04/03/24 12:00 Potassium Chloride Er 20 Meq Tab.Er PO 04/03/24 13:01 Q1HR [place] Thiamine HCl 100 mg 04/02/24 09:00 04/03/24 07:46 Thiamine 100 Mg Tab PO 100 mg DAILY [facility] Administration Intake and Output 04/02/24 04/03/24 04/03/24 22:59 06:59 14:59 Output Total 1370 550 900 Balance -1370 -550 -900 Output: Urine 1370 550 900 Other: Voiding Method Diaper Diaper Diaper External Catheter External Catheter External Catheter 04/03/24 04:28 04/03/24 04:28
[2024-04-03] MEDS: BUMETANIDE 1 MG TAB PO SCH (15:52)
[2024-04-04 09:44] LABS: Basophils # (A) 0.03 X 10*3/uL (0.00-0.10); Basophils % (A) 0.4 %; Eosinophils # (A) 0.12 X 10*3/uL (0.04-0.35); Eosinophils % (A) 1.6 %; HCT 47.4 % (37.2-46.3); Lymphocytes # (A) 1.62 X 10*3/uL (0.90-5.00); Lymphocytes % (A) 22.2 %; MCH 33.2 pg (27.0-32.0); MCHC 31.6 g/dL (32.0-37.0); MCV 104.9 FL (80.0-97.0); Mean Platelet Volume 10.6 FL (9.5-12.2); Monocytes # (A) 1.35 X 10*3/uL (0.20-1.00); Monocytes % (A) 18.5 %; NRBC Per 100 WBC 0.02 X 10*3/uL (0.00-0.01); Neutrophils # (A) 4.11 X 10*3/uL (1.80-7.70); Neutrophils % (A) 56.5 %; Platelet Count 144 X 10*3/uL (140-440); RBC 4.52 X 10*6/uL (4.10-5.20); RDW 19.6 % (11.5-14.5); WBC 7.29 X 10*3/uL (4.50-10.00)
[2024-04-04 10:24] LABS: ALT 28 U/L (8-44); AST 88 U/L (13-35); Albumin 2.5 g/dL (3.8-4.9); Albumin/Globulin Ratio 0.62 Ratio (1.60-3.17); Alkaline Phosphatase 247 U/L (41-126); BUN/Creat Ratio 14.29 Ratio (12.00-20.00); Carbon Dioxide 42.2 mmol/L (21.6-31.8); Chloride 94 mmol/L (96-109); Glucose 143 mg/dL (70-110); Potassium 3.5 mmol/L (3.5-5.5); Sodium 144 mmol/L (135-145); Total Bilirubin 1.6 mg/dL (0.3-1.2); Total Protein 6.5 g/dL (6.2-8.2)
--- NOTE | 2024-04-04 11:34 | P.PN ---
Subjective Progress Note Date: 04/04/24 Principal diagnosis: Patient is a 68-year-old female with past medical history of alcohol use disorder, CAD, liver cirrhosis, pulmonary hypertension history of tobacco use disorder (quit 1-1/2-year ago), who presents with generalized swelling and shortness of breath. She started noticing swelling of her extremities, abdominal wall and chest around 2 weeks ago on, it has been progressively worsening after the appointment she decided to come to the ER for evaluation. She has been having shortness of breath for several years and also recently noticed significant worsening, she gets short of breath with minimal exertion, she is now minimizing her physical activity and only makes couple steps, mostly sits in the chair. She denied fever, although feels chills, denies chest pain or pressure, no nausea or vomiting, she says that her abdomen started hurting on the day after she presented to the ER. She denies bowel habit changes, last BM 04/01, no dysuria, no hematuria or blood in stool. She states that she only had 1 episode in the past when her abdomen was very swollen, she says that she does not follow with nurse anesthesia program director, does not have a formal diagnosis of liver cirrhosis she is aware of. Patient has been drinking for the past 50 years, now 3-4 drinks a day, last drink several days ago, no history of DTs, alcohol withdrawal, alcohol withdrawal seizures. ER course: Patient was afebrile, heart rate in low 100s, initial BP 152/69, she was satting at 90% on room air, started on nasal cannula 4 L. Lab work significant for leukocytosis 13.8, hemoglobin 14.8, MCV 107.6, platelet count 138, INR 1.2, sodium 132, creatinine normal 0.67, magnesium 1.9, AST elevated 83, ALT normal 29, ALT, and phosphatase 240, troponin negative, proBNP 1590. EKG showed sinus tachycardia with HR 100s, low voltage QRS complexes Patient was given Lasix IV 40 in the ER and she was given additional diuretics. Echocardiogram had reported LVEF of 55 to 60% with RVSP noted to be 62 mmHg Patient seen and examined. She reports that overall she feels less edematous. Denies any nausea vomiting. Was seen using her incentive spirometer Objective - Vital Signs Vital signs: Vital Signs Temp 98.3 F 04/04/24 06:55 Pulse 106 H 04/04/24 06:55 Resp 15 04/04/24 06:55 BP 135/84 04/04/24 06:55 Pulse Ox 92 L 04/04/24 06:55 FiO2 Intake & Output 04/03/24 04/04/24 04/04/24 18:59 06:59 18:59 Intake Total 118 118 Output Total 1900 700 400 Balance -8992 -700 -173 Intake: Oral 118 118 Output: Urine 1900 700 400 Other: Voiding Method Diaper Diaper Diaper External Catheter External Catheter External Catheter # Bowel Movements 1 - Exam General: Obese, anasarca Derm: warm, dry Head: atraumatic, normocephalic, symmetric Eyes: EOMI, no lid lag, anicteric sclera, pupils equal round reactive to light ENT: Nose and ears atraumatic Neck: No thyromegaly, supple Mouth: no lip lesion, mucus membranes moist Cardiovascular: S1S2 reg, no murmur, no edema Lungs: clear to auscultation bilateral, no rhonchi, no rales, no wheeze, no accessory muscle use Abdominal distended, fluid wave, anasarca Ext: Appears mildly edematous to all extremities Neuro: All extremity spontaneously Psych: Alert, oriented, appropriate affect - Labs CBC & Chem 7: 04/04/24 04:03 04/04/24 04:03 Labs: Abnormal Lab Results - Last 24 Hours (Table) 04/03/24 04/03/24 04/04/24 Range/Units 16:11 20:27 04:03 Hct 47.4 H (37.2-46.3) % MCV 104.9 H (80.0-97.0) FL MCH 33.2 H (27.0-32.0) pg MCHC 31.6 L (32.0-37.0) g/dL RDW 19.6 H (11.5-14.5) % Immature Gran # 0.06 H (0.00-0.04) X 10*3/uL Monocytes # 1.35 H (0.20-1.00) X 10*3/uL NRBC/100 WBC Diff 0.02 H (0.00-0.01) X 10*3/uL Potassium 3.2 L 3.4 L (3.5-5.1) mmol/L Chloride (96-109) mmol/L Carbon Dioxide (21.6-31.8) mmol/L Glucose (70-110) mg/dL Calcium (8.7-10.3) mg/dL Total Bilirubin (0.3-1.2) mg/dL AST (13-35) U/L Alkaline Phosphatase (41-126) U/L Albumin (3.8-4.9) g/dL Globulin (1.6-3.3) g/dL Albumin/Globulin Ratio (1.60-3.17) Ratio /07/24 Range/Units 04:03 Hct (37.2-46.3) % MCV (80.0-97.0) FL MCH (27.0-32.0) pg MCHC (32.0-37.0) g/dL RDW (11.5-14.5) % Immature Gran # (0.00-0.04) X 10*3/uL Monocytes # (0.20-1.00) X 10*3/uL NRBC/100 WBC Diff (0.00-0.01) X 10*3/uL Potassium (3.5-5.1) mmol/L Chloride 94 L (96-109) mmol/L Carbon Dioxide 42.2 A* (21.6-31.8) mmol/L Glucose 143 H (70-110) mg/dL Calcium 8.0 L (8.7-10.3) mg/dL Total Bilirubin 1.6 H (0.3-1.2) mg/dL AST 88 H (13-35) U/L Alkaline Phosphatase 247 H (41-126) U/L Albumin 2.5 L (3.8-4.9) g/dL Globulin 4.0 H (1.6-3.3) g/dL Albumin/Globulin Ratio 0.62 L (1.60-3.17) Ratio Assessment and Plan Assessment: Acute hypoxic respiratory failure secondary to fluid volume overload in the settings of anasarca from liver cirrhosis Severe pulmonary hypertension with RVSP noted to be 62 mmHg as per TTE Leukocytosis Thrombocytopenia from alcohol use Macrocytosis, folate deficiency Low-voltage QRS complex Hyperbilirubinemia Pulmonary hypertension possibly from who subgroup 3? Had seen [facility] outpatient for pulm hypertension however no longer followed up with him. Continue Bumex 1 mg twice daily for volume control. Add potassium supplementation with 20 mEq daily Possible cirrhosis -The patient reports that she was diagnosed with possible cirrhosis. Limited ultrasound had revealed no evidence of cirrhosis on the liver. Would recommend serial imaging and if possible may benefit from a FibroScan outpatient -Can continue spironolactone 25 mg daily for ascites control however unclear if the patient definitively has cirrhosis at this time Alcohol use disorder -Reports she has been drinking alcohol for approximately 40 years. Reports that beverage of choice is a mikes hard lemonade Given alcohol cessation Continue multivitamin thiamine supplementation CAD -Patient is not on aspirin or statins -She needs to follow-up with primary care physician Obesity: Would benefit from outpatient sleep study, recommend weight loss CODE STATUS full code DVT prophylaxis: Lovenox Anticipated discharge date: Saturday Anticipated discharge place: [facility]
[2024-04-04] MEDS: POTASSIUM CHLORIDE ER 20 MEQ TAB.ER PO SCH (14:46)
[2024-04-05 10:56] LABS: Anion Gap <6.00 mmol/L (4.00-12.00); Blood Urea Nitrogen 7.2 mg/dL (9.0-27.0); Calcium 7.8 mg/dL (8.7-10.3); Carbon Dioxide >45.0 mmol/L (21.6-31.8); Chloride 94 mmol/L (96-109); Glucose 90 mg/dL (70-110); Potassium 3.2 mmol/L (3.5-5.5); Sodium 145 mmol/L (135-145)
--- NOTE | 2024-04-05 12:12 | P.PN ---
Subjective Progress Note Date: 04/05/24 Principal diagnosis: Patient is a 68-year-old female with past medical history of alcohol use disorder, CAD, liver cirrhosis, pulmonary hypertension history of tobacco use disorder (quit 1-1/2-year ago), who presents with generalized swelling and shortness of breath. She started noticing swelling of her extremities, abdominal wall and chest around 2 weeks ago on, it has been progressively worsening after the appointment she decided to come to the ER for evaluation. She has been having shortness of breath for several years and also recently noticed significant worsening, she gets short of breath with minimal exertion, she is now minimizing her physical activity and only makes couple steps, mostly sits in the chair. She denied fever, although feels chills, denies chest pain or pressure, no nausea or vomiting, she says that her abdomen started hurting on the day after she presented to the ER. She denies bowel habit changes, last BM 04/01, no dysuria, no hematuria or blood in stool. She states that she only had 1 episode in the past when her abdomen was very swollen, she says that she does not follow with pension consultant, does not have a formal diagnosis of liver cirrhosis she is aware of. Patient has been drinking for the past 50 years, now 3-4 drinks a day, last drink several days ago, no history of DTs, alcohol withdrawal, alcohol withdrawal seizures. ER course: Patient was afebrile, heart rate in low 100s, initial BP 152/69, she was satting at 90% on room air, started on nasal cannula 4 L. Lab work significant for leukocytosis 13.8, hemoglobin 14.8, MCV 107.6, platelet count 138, INR 1.2, sodium 132, creatinine normal 0.67, magnesium 1.9, AST elevated 83, ALT normal 29, ALT, and phosphatase 240, troponin negative, proBNP 1590. EKG showed sinus tachycardia with HR 100s, low voltage QRS complexes Patient was given Lasix IV 40 in the ER and she was given additional diuretics. Echocardiogram had reported LVEF of 55 to 60% with RVSP noted to be 62 mmHg Patient seen and examined. She reports she is urinating quite a bit. CO2 noted to be greater than 45 awaiting VBG in addition her right elbow was noted to be red erythematous and painful upon palpation Objective - Vital Signs Vital signs: Vital Signs Temp 98.3 F 04/05/24 07:34 Pulse 99 04/05/24 07:34 Resp 18 04/05/24 07:34 BP 113/72 04/05/24 07:34 Pulse Ox 91 L 04/05/24 07:34 FiO2 Intake & Output 04/04/24 04/05/24 04/05/24 18:59 06:59 18:59 Intake Total 118 240 Output Total 400 800 Balance -282 -800 240 Intake: Oral 118 240 Output: Urine 400 800 Other: Voiding Method Diaper Diaper Diaper External Catheter External Catheter External Catheter # Bowel Movements 1 - Exam General: Obese, anasarca Derm: warm, dry Head: atraumatic, normocephalic, symmetric Eyes: EOMI, no lid lag, anicteric sclera, pupils equal round reactive to light ENT: Nose and ears atraumatic Neck: No thyromegaly, supple Mouth: no lip lesion, mucus membranes moist Cardiovascular: S1S2 reg, no murmur, no edema Lungs: clear to auscultation bilateral, no rhonchi, no rales, no wheeze, no accessory muscle use Abdominal distended, fluid wave, anasarca Ext: Right elbow skin region appears to be red warm hot to touch and painful to palpation Neuro: All extremity spontaneously Psych: Alert, oriented, appropriate affect - Labs CBC & Chem 7: 04/04/24 04:03 04/05/24 06:08 Labs: Abnormal Lab Results - Last 24 Hours (Table) 04/05/24 Range/Units 06:08 Potassium 3.2 L (3.5-5.5) mmol/L Chloride 94 L (96-109) mmol/L Carbon Dioxide >45.0 A* (21.6-31.8) mmol/L BUN 7.2 L (9.0-27.0) mg/dL Calcium 7.8 L (8.7-10.3) mg/dL Assessment and Plan Assessment: Acute hypoxic respiratory failure secondary to fluid volume overload in the settings of anasarca from liver cirrhosis Severe pulmonary hypertension with RVSP noted to be 62 mmHg as per TTE Leukocytosis Thrombocytopenia from alcohol use Macrocytosis, folate deficiency Low-voltage QRS complex Hyperbilirubinemia Pulmonary hypertension possibly from who subgroup 3? Had seen [facility] outpatient for pulm hypertension however no longer followed up with him. Continue Bumex 1 mg twice daily for volume control. potassium supplementation with 20 mEq daily Check VBG this morning and if evidence of contraction alkalosis will add a dose of Diamox Cellulitis surrounding right elbow -Monitor area of erythema and start IV cefazolin for skin and soft tissue infection Possible cirrhosis -The patient reports that she was diagnosed with possible cirrhosis. Limited ultrasound had revealed no evidence of cirrhosis on the liver. Would recommend serial imaging and if possible may benefit from a FibroScan outpatient -Can continue spironolactone 25 mg daily for ascites control however unclear if the patient definitively has cirrhosis at this time Alcohol use disorder -Reports she has been drinking alcohol for approximately 40 years. Reports that beverage of choice is a mikes hard lemonade Given alcohol cessation Continue multivitamin thiamine supplementation CAD -Patient is not on aspirin or statins -She needs to follow-up with primary care physician Obesity: Would benefit from outpatient sleep study, recommend weight loss CODE STATUS full code DVT prophylaxis: Lovenox Anticipated discharge date: Saturday Anticipated discharge place: group home rehab
[2024-04-05 12:52] LABS: VBG PH 7.5 (7.31-7.41)
[2024-04-05] MEDS: NYSTATIN 100,000 UNIT/GM OINT 30 GM TUBE TOPICAL SCH (23:28)
[2024-04-06 10:17] LABS: African American GFR (CKD) >90 (>60 ml/min/1.73 sqM); Blood Urea Nitrogen 8 mg/dL (7-17); Calcium 7.7 mg/dL (8.4-10.2); Chloride 91 mmol/L (98-107); Glucose 118 mg/dL (74-99); Magnesium 1.5 mg/dL (1.6-2.3); Non-African American GFR(CKD) >90 (>60 ml/min/1.73 sqM); Sodium 138 mmol/L (137-145)
[2024-04-06 10:23] LABS: Anion Gap 8 mmol/L
[2024-04-06 10:26] LABS: Carbon Dioxide 39 mmol/L (22-30); Potassium 2.7 mmol/L (3.5-5.1)
[2024-04-06] MEDS: POTASSIUM CHLORIDE 20 MEQ in WATER FOR INJECTION 1 100ML.BAG IVPB STA (12:30)
[2024-04-06] MEDS: POTASSIUM CHLORIDE ER 20 MEQ TAB.ER PO SCH (12:30)
--- NOTE | 2024-04-06 14:23 | P.PN ---
Subjective Progress Note Date: 04/06/24 Principal diagnosis: chf 68-year-old female with past medical history of alcohol use disorder, CAD, liver cirrhosis, pulmonary hypertension history of tobacco use disorder (quit 1-1/2-year ago), who presents with generalized swelling and shortness of breath. She started noticing swelling of her extremities, abdominal wall and chest around 2 weeks ago on, it has been progressively worsening after the appointment she decided to come to the ER for evaluation. She has been having shortness of breath for several years and also recently noticed significant worsening, she gets short of breath with minimal exertion, she is now minimizing her physical activity and only makes couple steps, mostly sits in the chair. She states that she only had 1 episode in the past when her abdomen was very swollen, she says that she does not follow with motor vehicle representative, does not have a formal diagnosis of liver cirrhosis she is aware of. Patient has been drinking for the past 50 y ears, now 3-4 drinks a day, last drink several days ago, no history of DTs, alcohol withdrawal, alcohol withdrawal seizures. ER course: Patient was afebrile, heart rate in low 100s, initial BP 152/69, she was satting at 90% on room air, started on nasal cannula 4 L. Lab work significant for leukocytosis 13.8, hemoglobin 14.8, MCV 107.6, platelet count 138, INR 1.2, sodium 132, creatinine normal 0.67, magnesium 1.9, AST elevated 83, ALT normal 29, ALT, and phosphatase 240, troponin negative, proBNP 1590. EKG showed sinus tachycardia with HR 100s, low voltage QRS complexes. Patient was given Lasix IV 40 in the ER and she was given additional diuretics. Echocardiogram had reported LVEF of 55 to 60% with RVSP noted to be 62 mmHg. 04/06 Still with sob which is feeling better, swelling is better. Feels like her feet stepping of ''tissue paper'' while walking. No n/v. Objective - Vital Signs Vital signs: Vital Signs Temp 98.2 F 04/06/24 14:00 Pulse 100 04/06/24 14:00 Resp 16 04/06/24 14:00 BP 128/78 04/06/24 14:00 Pulse Ox 94 L 04/06/24 14:00 FiO2 Intake & Output 04/05/24 04/06/24 04/06/24 18:59 06:59 18:59 Intake Total 240 118 Output Total 800 900 750 Balance -448 -666 -691 Intake: Oral 240 118 Output: Urine 800 900 750 Other: Voiding Method Diaper Diaper External Catheter External Catheter # Bowel Movements 1 - Exam General: Obese, anasarca Derm: warm, dry Head: atraumatic, normocephalic, symmetric Eyes: EOMI, no lid lag, anicteric sclera, pupils equal round reactive to light ENT: Nose and ears atraumatic Neck: No thyromegaly, supple Mouth: no lip lesion, mucus membranes moist Cardiovascular: S1S2 reg, no murmur, no edema Lungs: clear to auscultation bilateral, no rhonchi, no rales, no wheeze, no accessory muscle use Abdominal distended, fluid wave, anasarca Ext: Right elbow skin region appears to be red warm hot to touch and painful to palpation Neuro: All extremity spontaneously Psych: Alert, oriented, appropriate affect - Labs CBC & Chem 7: 04/04/24 04:03 04/06/24 09:32 Labs: Abnormal Lab Results - Last 24 Hours (Table) 04/06/24 Range/Units 09:32 Potassium 2.7 L* (3.5-5.1) mmol/L Chloride 91 L (98-107) mmol/L Carbon Dioxide 39 H (22-30) mmol/L Glucose 118 H (74-99) mg/dL Calcium 7.7 L (8.4-10.2) mg/dL Magnesium 1.5 L (1.6-2.3) mg/dL Assessment and Plan Plan: Acute hypoxic respiratory failure secondary to fluid volume overload in the settings of anasarca from liver cirrhosis Hypokalemia and hypomagnesemia sec to diuresis Severe pulmonary hypertension with RVSP noted to be 62 mmHg as per TTE Leukocytosis Thrombocytopenia from alcohol use Macrocytosis, folate deficiency Low-voltage QRS complex Hyperbilirubinemia Pulmonary hypertension was seen at [facility] outpatient however no longer followed up. K and Mg low today, decrease bumex from bid to once daily. Replace lytes and follow in am Cellulitis surrounding right elbow -continue IV cefazolin for skin and soft tissue infection Possible cirrhosis -The patient reports that she was diagnosed with possible cirrhosis. Limited ultrasound had revealed no evidence of cirrhosis on the liver. Would recommend serial imaging and if possible may benefit from a FibroScan outpatient -Can continue spironolactone 25 mg daily for ascites control however unclear if the patient definitively has cirrhosis at this time Alcohol use disorder -Reports she has been drinking alcohol for approximately 40 years. Reports that beverage of choice is a mikes hard lemonade Given alcohol cessation Continue multivitamin thiamine supplementation CAD -Patient is not on aspirin or statins -She needs to follow-up with primary care physician Obesity: Would benefit from outpatient sleep study, recommend weight loss General weakness PT and OT CODE STATUS full code DVT prophylaxis: Lovenox Anticipated discharge date: 1-[address]
[2024-04-06] MEDS: MAGNESIUM SULFATE-D5W PMX 1 GM in DEXTROSE/WATER 1 100ML.BAG IVPB SCH (15:12)
[2024-04-06] MEDS: MAGNESIUM OXIDE 400 MG TAB PO SCH (19:43)
[2024-04-07] MEDS: BUMETANIDE 1 MG TAB PO SCH (09:29)
[2024-04-07 11:12] LABS: BUN/Creat Ratio 13.33 Ratio (12.00-20.00); Calcium 8.4 mg/dL (8.7-10.3); Carbon Dioxide 34.1 mmol/L (21.6-31.8); Chloride 101 mmol/L (96-109); Glucose 90 mg/dL (70-110); Potassium 3.8 mmol/L (3.5-5.5); Sodium 144 mmol/L (135-145)
--- NOTE | 2024-04-07 18:03 | P.PN ---
Subjective Progress Note Date: 04/07/24 Hospital Course: 68-year-old female with past medical history of alcohol use disorder, CAD, li holli cirrhosis, pulmonary hypertension history of tobacco use disorder (quit 1-1/2-year ago), who presents with generalized swelling and shortness of breath. She started noticing swelling of her extremities, abdominal wall and chest around 2 weeks ago on, it has been progressively worsening after the appointment she decided to come to the ER for evaluation. She has been having shortness of breath for several years and also recently noticed significant worsening, she gets short of breath with minimal exertion, she is now minimizing her physical activity and only makes couple steps, mostly sits in the chair. She states that she only had 1 episode in the past when her abdomen was very swollen, she says that she does not follow with vibration analyst, does not have a formal diagnosis of liver cirrhosis she is aware of. Patient has been drinking for the past 50 years, now 3-4 drinks a day, last drink several days ago, no history of DTs, alcohol withdrawal, alcohol withdrawal seizures. ER course: Patient was afebrile, heart rate in low 100s, initial BP 152/69, she was satting at 90% on room air, started on nasal cannula 4 L. Lab work significant for leukocytosis 13.8, hemoglobin 14.8, MCV 107.6, platelet count 138, INR 1.2, sodium 132, creatinine normal 0.67, magnesium 1.9, AST elevated 83, ALT normal 29, ALT, and phosphatase 240, troponin negative, proBNP 1590. EKG showed sinus tachycardia with HR 100s, low voltage QRS complexes. Patient was given Lasix IV 40 in the ER and she was given additional diuretics. Echocardiogram had reported LVEF of 55 to 60% with RVSP noted to be 62 mmHg. Cardiology consulted, recommended to follow-up with patient's primary cardiology, patient was switched to Bumex 1 mg p.o. daily, awaiting placement to [facility]. She was also diagnosed with right elbow cellulitis and started on IV cefazolin. Subjective: She was seen and examined at bedside, noted improvement in her breathing, no abdominal pain today, swelling is gone down although her tights are pretty tense and tender Pertinent positives and negatives as discussed above, a complete review of systems was performed and all other systems are negative. Vitals Signs Reviewed. General: [nontoxic], [no distress], [appears at stated age] Derm: [warm], [dry] General: Obese, anasarca Derm: warm, dry Head: atraumatic, normocephalic, symmetric Eyes: EOMI, no lid lag, anicteric sclera, pupils equal round reactive to light ENT: Nose and ears atraumatic Neck: No thyromegaly, supple Mouth: no lip lesion, mucus membranes moist Cardiovascular: S1S2 reg, no murmur, no edema Lungs: clear to auscultation bilateral, no rhonchi, no rales, no wheeze, no accessory muscle use Abdominal distended, nontender Ext: Right elbow skin region appears to be red warm hot to touch and painful to palpation Neuro: All extremity spontaneously Psych: Alert, oriented, appropriate affect Assessment and Plan: Acute hypoxic respiratory failure secondary to fluid volume overload in the settings of anasarca from liver cirrhosis Hypokalemia and hypomagnesemia sec to diuresis Severe pulmonary hypertension with RVSP noted to be 62 mmHg as per TTE Leukocytosis Thrombocytopenia from alcohol use Macrocytosis, folate deficiency Low-voltage QRS complex Hyperbilirubinemia Pulmonary hypertension was seen at [facility] outpatient however no longer followed up. Continue Bumex once daily Replace lytes and follow in am Cellulitis surrounding right elbow -continue IV cefazolin for skin and soft tissue infection -Transition to cephalexin 500 mg p.o. every 6 hours or clindamycin 300 every 8 hours to continue treatment Possible cirrhosis -The patient reports that she was diagnosed with possible cirrhosis. Limited ultrasound had revealed no evidence of cirrhosis on the liver. Would recommend serial imaging and if possible may benefit from a FibroScan outpatient -Can continue spironolactone 25 mg daily for ascites control however unclear if the patient definitively has cirrhosis at this time Alcohol use disorder -Reports she has been drinking alcohol for approximately 40 years. Reports that beverage of choice is a mikes hard lemonade Given alcohol cessation Continue multivitamin thiamine supplementation CAD -Patient is not on aspirin or statins -She needs to follow-up with primary care physician Obesity: Would benefit from outpatient sleep study, recommend weight loss DVT ppx: lovenox Anticipated discharge placesnf Anticipated discharge time: 04/08 Objective - Vital Signs Vital signs: Vital Signs Temp 97.9 F 04/07/24 15:41 Pulse 96 04/07/24 15:41 Resp 16 04/07/24 15:41 BP 117/73 04/07/24 15:41 Pulse Ox 96 04/07/24 15:41 FiO2 Intake & Output 04/06/24 04/07/24 04/07/24 18:59 06:59 18:59 Intake Total 236 236 Output Total 2529 186 6229 Balance -914 -500 -964 Intake: Oral 236 236 Output: Urine 4735 859 1009 Other: Voiding Method Diaper Diaper External Catheter External Catheter # Bowel Movements 1 - Labs CBC & Chem 7: 04/04/24 04:03 04/07/24 06:01 Labs: Abnormal Lab Results - Last 24 Hours (Table) 04/07/24 Range/Units 06:01 Carbon Dioxide 34.1 H (21.6-31.8) mmol/L BUN 8.0 L (9.0-27.0) mg/dL Calcium 8.4 L (8.7-10.3) mg/dL
[2024-04-08 08:37] LABS: Basophils # (A) 0.05 X 10*3/uL (0.00-0.10); Basophils % (A) 0.9 %; Eosinophils # (A) 0.17 X 10*3/uL (0.04-0.35); Eosinophils % (A) 2.9 %; HCT 45.7 % (37.2-46.3); HGB 14.7 g/dL (12.0-15.0); Lymphocytes # (A) 1.52 X 10*3/uL (0.90-5.00); MCH 33.3 pg (27.0-32.0); MCHC 32.2 g/dL (32.0-37.0); MCV 103.4 FL (80.0-97.0); Mean Platelet Volume 11.6 FL (9.5-12.2); Monocytes # (A) 1.32 X 10*3/uL (0.20-1.00); Monocytes % (A) 22.6 %; NRBC Per 100 WBC 0 X 10*3/uL (0.00-0.01); Neutrophils # (A) 2.75 X 10*3/uL (1.80-7.70); Neutrophils % (A) 46.9 %; Platelet Count 138 X 10*3/uL (140-440); RBC 4.42 X 10*6/uL (4.10-5.20); RDW 18.6 % (11.5-14.5); WBC 5.85 X 10*3/uL (4.50-10.00)
[2024-04-08 08:51] LABS: ALT 28 U/L (8-44); AST 142 U/L (13-35); Albumin 2.4 g/dL (3.8-4.9); Alkaline Phosphatase 241 U/L (41-126); Blood Urea Nitrogen 7.8 mg/dL (9.0-27.0); Calcium 8.4 mg/dL (8.7-10.3); Carbon Dioxide 33.3 mmol/L (21.6-31.8); Chloride 102 mmol/L (96-109); Glucose 105 mg/dL (70-110); Potassium 3.8 mmol/L (3.5-5.5); Sodium 144 mmol/L (135-145); Total Bilirubin 1.5 mg/dL (0.3-1.2); Total Protein 6.4 g/dL (6.2-8.2)
[2024-04-08] MEDS: GABAPENTIN 100 MG CAP PO SCH (12:10)
--- NOTE | 2024-04-08 14:48 | P.PN ---
Subjective Progress Note Date: 04/08/24 Hospital Course: 68-year-old female with past medical history of alcohol use disorder, CAD, li holli cirrhosis, pulmonary hypertension history of tobacco use disorder (quit 1-1/2-year ago), who presents with generalized swelling and shortness of breath. She started noticing swelling of her extremities, abdominal wall and chest around 2 weeks ago on, it has been progressively worsening after the appointment she decided to come to the ER for evaluation. She has been having shortness of breath for several years and also recently noticed significant worsening, she gets short of breath with minimal exertion, she is now minimizing her physical activity and only makes couple steps, mostly sits in the chair. 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 Patient has been drinking for the past 50 years, now 3-4 drinks a day, last drink several days ago, no history of DTs, alcohol withdrawal, alcohol withdrawal seizures. ER course: Patient was afebrile, heart rate in low 100s, initial BP 152/69, she was satting at 90% on room air, started on nasal cannula 4 L. Lab work significant for leukocytosis 13.8, hemoglobin 14.8, MCV 107.6, platelet count 138, INR 1.2, sodium 132, creatinine normal 0.67, magnesium 1.9, AST elevated 83, ALT normal 29, ALT, and phosphatase 240, troponin negative, proBNP 1590. EKG showed sinus tachycardia with HR 100s, low voltage QRS complexes. Patient was given Lasix IV 40 in the ER and she was given additional diuretics. Echocardiogram had reported LVEF of 55 to 60% with RVSP noted to be 62 mmHg. Cardiology consulted, recommended to follow-up with patient's primary cardiology, patient was switched to Bumex 1 mg p.o. daily, awaiting placement to [facility]. Started on gabapentin for neuropathic pain, increased to 200 3 times daily with symptoms improvement. She was also diagnosed with right elbow cellulitis and started on IV cefazolin. Subjective: Patient feels somewhat better today, no shortness of breath, abdominal pain, there is right elbow discomfort and skin tightness Pertinent positives and negatives as discussed above, a complete review of systems was performed and all other systems are negative. Vitals Signs Reviewed. General: [nontoxic], [no distress], [appears at stated age] Derm: [warm], [dry], right elbow erythema is improving General: Obese, anasarca Derm: warm, dry Head: atraumatic, normocephalic, symmetric Eyes: EOMI, no lid lag, anicteric sclera, pupils equal round reactive to light ENT: Nose and ears atraumatic Neck: No thyromegaly, supple Mouth: no lip lesion, mucus membranes moist Cardiovascular: S1S2 reg, no murmur, no edema Lungs: clear to auscultation bilateral, no rhonchi, no rales, no wheeze, no accessory muscle use Abdominal distended, nontender Ext: Right elbow skin region appears to be red warm hot to touch and painful to palpation Neuro: All extremity spontaneously Psych: Alert, oriented, appropriate affect Data Reviewed Today: Pertinent Labs: No leukocytosis, hemoglobin normal and stable, creatinine stable and normal, no significant electrolyte abnormalities Assessment and Plan: Acute hypoxic respiratory failure secondary to fluid volume overload in the settings of anasarca from liver cirrhosis Hypokalemia and hypomagnesemia sec to diuresis Severe pulmonary hypertension with RVSP noted to be 62 mmHg as per TTE Leukocytosis Thrombocytopenia from alcohol use Macrocytosis, folate deficiency Low-voltage QRS complex Hyperbilirubinemia Pulmonary hypertension was seen at [facility] outpatient however no longer followed up. Continue Bumex once daily Increase gabapentin to 200 3 times daily Cellulitis surrounding right elbow -continue IV cefazolin for skin and soft tissue infection -Transition to clindamycin 300 every 8 hours at d/c to continue treatment Possible cirrhosis -The patient reports that she was diagnosed with possible cirrhosis. Limited ultrasound had revealed no evidence of cirrhosis on the liver. Would recommend serial imaging and if possible may benefit from a FibroScan outpatient -Can continue spironolactone 25 mg daily for ascites control however unclear if the patient definitively has cirrhosis at this time Alcohol use disorder -Reports she has been drinking alcohol for approximately 40 years. Reports that beverage of choice is a mikes hard lemonade Given alcohol cessation Continue multivitamin thiamine supplementation CAD -Patient is not on aspirin or statins -She needs to follow-up with primary care physician Obesity: Would benefit from outpatient sleep study, recommend weight loss DVT ppx: lovenox Anticipated discharge: Patient is stable for discharge from medical standpoint, awaiting prior authorization Objective - Vital Signs Vital signs: Vital Signs Temp 98.1 F 04/08/24 14:00 Pulse 95 04/08/24 14:00 Resp 16 04/08/24 14:00 BP 140/83 04/08/24 14:00 Pulse Ox 97 04/08/24 14:00 FiO2 Intake & Output 04/07/24 04/08/24 04/08/24 18:59 06:59 18:59 Intake Total 354 118 Output Total 1200 350 750 Balance -212 -556 -049 Intake: Oral 354 118 Output: Urine 1200 350 750 Other: Voiding Method Diaper Diaper External Catheter External Catheter # Bowel Movements 1 - Labs CBC & Chem 7: 04/08/24 04:10 04/08/24 04:10 Labs: Abnormal Lab Results - Last 24 Hours (Table) 04/08/24 04/08/24 Range/Units 04:10 04:10 MCV 103.4 H (80.0-97.0) FL MCH 33.3 H (27.0-32.0) pg RDW 18.6 H (11.5-14.5) % Plt Count 138 L (140-440) X 10*3/uL Monocytes # 1.32 H (0.20-1.00) X 10*3/uL Carbon Dioxide 33.3 H (21.6-31.8) mmol/L BUN 7.8 L (9.0-27.0) mg/dL Creatinine 0.5 L (0.6-1.5) mg/dL Calcium 8.4 L (8.7-10.3) mg/dL Total Bilirubin 1.5 H (0.3-1.2) mg/dL AST 142 H (13-35) U/L Alkaline Phosphatase 241 H (41-126) U/L Albumin 2.4 L (3.8-4.9) g/dL Globulin 4.0 H (1.6-3.3) g/dL Albumin/Globulin Ratio 0.60 L (1.60-3.17) Ratio
--- NOTE | 2024-04-09 16:38 | P.PN ---
Subjective Progress Note Date: 04/09/24 Hospital Course: 68-year-old female with past medical history of alcohol use disorder, CAD, li holli cirrhosis, pulmonary hypertension history of tobacco use disorder (quit 1-1/2-year ago), who presents with generalized swelling and shortness of breath. She started noticing swelling of her extremities, abdominal wall and chest around 2 weeks ago on, it has been progressively worsening after the appointment she decided to come to the ER for evaluation. She has been having shortness of breath for several years and also recently noticed significant worsening, she gets short of breath with minimal exertion, she is now minimizing her physical activity and only makes couple steps, mostly sits in the chair. 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 Patient has been drinking for the past 50 years, now 3-4 drinks a day, last drink several days ago, no history of DTs, alcohol withdrawal, alcohol withdrawal seizures. ER course: Patient was afebrile, heart rate in low 100s, initial BP 152/69, she was satting at 90% on room air, started on nasal cannula 4 L. Lab work significant for leukocytosis 13.8, hemoglobin 14.8, MCV 107.6, platelet count 138, INR 1.2, sodium 132, creatinine normal 0.67, magnesium 1.9, AST elevated 83, ALT normal 29, ALT, and phosphatase 240, troponin negative, proBNP 1590. EKG showed sinus tachycardia with HR 100s, low voltage QRS complexes. Patient was given Lasix IV 40 in the ER and she was given additional diuretics. Echocardiogram had reported LVEF of 55 to 60% with RVSP noted to be 62 mmHg. Cardiology consulted, recommended to follow-up with patient's primary cardiology, patient was switched to Bumex 1 mg p.o. daily, awaiting placement to [facility]. Started on gabapentin for neuropathic pain, increased to 200 3 times daily with symptoms improvement. [id number] done in 04/09, updated PT OT notes sent, still waiting for prior Auth She was also diagnosed with right elbow cellulitis and started on IV cefazolin. Improved significantly, plan to transition to oral at discharge Subjective: Seen and examined at bedside, feeling better, is more active, no SOB, chest discomfort, right elbow pain is improving, says that her right side of the body is more painful and she has she probably worked it up more today Pertinent positives and negatives as discussed above, a complete review of systems was performed and all other systems are negative. Vitals Signs Reviewed. General: [nontoxic], [no distress], [appears at stated age] Derm: [warm], [dry], right elbow erythema is improving General: Obese, anasarca Derm: warm, dry Head: atraumatic, normocephalic, symmetric Eyes: EOMI, no lid lag, anicteric sclera, pupils equal round reactive to light ENT: Nose and ears atraumatic Neck: No thyromegaly, supple Mouth: no lip lesion, mucus membranes moist Cardiovascular: S1S2 reg, no murmur, no edema Lungs: clear to auscultation bilateral, no rhonchi, no rales, no wheeze, no accessory muscle use Abdominal distended, nontender Ext: Right elbow skin region erythema is improved significantly, no warmness, there is still. Bilateral lower extremity discoloration persistent, swelling is going down Neuro: All extremity spontaneously Psych: Alert, oriented, appropriate affect Assessment and Plan: Acute hypoxic respiratory failure secondary to fluid volume overload in the settings of anasarca from liver cirrhosis Hypokalemia and hypomagnesemia sec to diuresis Severe pulmonary hypertension with RVSP noted to be 62 mmHg as per TTE Leukocytosis Thrombocytopenia from alcohol use Macrocytosis, folate deficiency Low-voltage QRS complex Hyperbilirubinemia Pulmonary hypertension was seen at [facility] outpatient however no longer followed up. Continue Bumex once daily Increase gabapentin to 200 3 times daily, pain improved significantly Cellulitis surrounding right elbow -continue IV cefazolin for skin and soft tissue infection -Transition to clindamycin 300 every 8 hours at d/c to continue treatment Possible cirrhosis -The patient reports that she was diagnosed with possible cirrhosis. Limited ultrasound had revealed no evidence of cirrhosis on the liver. Would recommend serial imaging and if possible may benefit from a FibroScan outpatient -Can continue spironolactone 25 mg daily for ascites control however unclear if the patient definitively has cirrhosis at this time Alcohol use disorder -Reports she has been drinking alcohol for approximately 40 years. Reports that beverage of choice is a mikes hard lemonade Given alcohol cessation Continue multivitamin thiamine supplementation CAD -Patient is not on aspirin or statins -She needs to follow-up with primary care physician Obesity: Would benefit from outpatient sleep study, recommend weight loss DVT ppx: lovenox Anticipated discharge: Patient is stable for discharge from medical standpoint since 04/07, awaiting prior authorization Objective - Vital Signs Vital signs: Vital Signs Temp 98.2 F 04/09/24 14:00 Pulse 97 04/09/24 14:00 Resp 16 04/09/24 14:00 BP 114/70 04/09/24 14:00 Pulse Ox 97 04/09/24 14:00 FiO2 Intake & Output 04/08/24 04/09/24 04/09/24 18:59 06:59 18:59 Intake Total 118 Output Total 1150 200 500 Balance -1032 -200 -500 Intake: Oral 118 Output: Urine 1150 200 500 Other: Voiding Method Diaper Diaper External Catheter External Catheter # Voids 1 - Labs CBC & Chem 7: 04/08/24 04:10 04/08/24 04:10
[2024-04-10 08:07] VITALS: BP 111/64; PULSE 93; RESP 16; TEMP 98.3
--- NOTE | 2024-04-10 08:37 | XR ---
EXAMINATION TYPE: XR chest 1V portable DATE OF EXAM: 04/10/2024 7:22 AM COMPARISON: 04/02/2024 CLINICAL INDICATION: Female, 68 years old with history of persistent hypoxia, , FINDINGS: Heart borderline to mildly enlarged. This seems to be some improvement in heart size prior. Diffuse i nterstitial opacities persist. Patchy bilateral lower lung opacities may be slightly worsened. The ap parent change may be due to leftward patient rotation. IMPRESSION: Diffuse interstitial and patchy bilateral lower lung opacities are similar to slightly worsened. Some of this apparent change may be due to leftward patient rotation. [facility], , 04/10/2024 8:35 AM
--- NOTE | 2024-04-10 10:35 | P.DS ---
Providers Date of admission: 04/01/24 15:32 Attending physician: Yusuf Mujica Primary care physician: Daniel Miller [facility] Course: Discharge Diagnosis: Acute hypoxic respiratory failure secondary to fluid volume overload in the settings of anasarca from liver cirrhosis Hypokalemia and hypomagnesemia sec to diuresis Severe pulmonary hypertension with RVSP noted to be 62 mmHg as per TTE Leukocytosis Thrombocytopenia from alcohol use Macrocytosis, folate deficiency Low-voltage QRS complex Hyperbilirubinemia Pulmonary hypertension nonpurulent Cellulitis surrounding right elbow Possible cirrhosis Alcohol use disorder Hospital Course: 68-year-old female with past medical history of alcohol use disorder, CAD, liver cirrhosis, pulmonary hypertension history of tobacco use disorder (quit 1-1/2-year ago), who presents with generalized swelling and shortness of breath. She started noticing swelling of her extremities, abdominal wall and chest around 2 weeks ago on, it has been progressively worsening after the appointment she decided to come to the ER for evaluation. She has been having shortness of breath for several years and also recently noticed significant worsening, she gets short of breath with minimal exertion, she is now minimizing her physical activity and only makes couple steps, mostly sits in the chair. 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 Patient has been drinking for the past 50 years, now 3-4 drinks a day, last drink several days ago, no history of DTs, alcohol withdrawal, alcohol withdrawal seizures. ER course: Patient was afebrile, heart rate in low 100s, initial BP 152/69, she was satting at 90% on room air, started on nasal cannula 4 L. Lab work significant for leukocytosis 13.8, hemoglobin 14.8, MCV 107.6, platelet count 138, INR 1.2, sodium 132, creatinine normal 0.67, magnesium 1.9, AST elevated 83, ALT normal 29, ALT, and phosphatase 240, troponin negative, proBNP 1590. EKG showed sinus tachycardia with HR 100s, low voltage QRS complexes. Patient was given Lasix IV 40 in the ER and she was given additional diuretics. Echocardiogram had reported LVEF of 55 to 60% with RVSP noted to be 62 mmHg. Cardiology consulted, recommended to follow-up with patient's primary cardiology, patient was switched to Bumex 1 mg p.o. daily, awaiting placement to [facility]. Started on gabapentin for neuropathic pain, increased to 200 3 times daily with symptoms improvement. She was also diagnosed with right elbow cellulitis and started on IV cefazolin. Patient will be discharged to [facility] on clindamycin to continue treatment for cellulitis, she will continue Bumex 1 mg, spironolactone, multivitamins, folic acid, thiamine, she was also be send on gabapentin 200 3 times daily for neuropathic pain. Patient needs to follow-up with primary care physician, may benefit from FibroScan for further evaluation of possible cirrhosis. Patient needs to be seen back at the [facility] for pulmonary hypertension. Patient needs to get sleep studies as outpatient, recommend weight loss Patient seen and examined at bedside. General: [nontoxic], [no distress], [appears at stated age] Derm: [warm], [dry], right elbow erythema is improving General: Obese, anasarca Derm: warm, dry Head: atraumatic, normocephalic, symmetric Eyes: EOMI, no lid lag, anicteric sclera, pupils equal round reactive to light ENT: Nose and ears atraumatic Neck: No thyromegaly, supple Mouth: no lip lesion, mucus membranes moist Cardiovascular: S1S2 reg, no murmur, no edema Lungs: clear to auscultation bilateral, no rhonchi, no rales, no wheeze, no accessory muscle use Abdominal distended, nontender Ext: Bilateral lower extremity edema is improving, bilateral lower extremity discoloration persisting, tenderness to palpation Neuro: All extremity spontaneously Psych: Alert, oriented, appropriate affect A total of 40 minutes of time were spent preparing this complex discharge summary. Plan - Discharge Summary Discharge Rx Participant: No New Discharge Prescriptions: New Folic Acid 1 mg PO DAILY #30 tab Thiamine [Vitamin B-1] 100 mg PO DAILY #30 tab Spironolactone [Aldactone] 25 mg PO DAILY #30 tab Bumetanide [BUMEX] 1 mg PO DAILY #30 tab Magnesium Oxide [Mag-Ox] 400 mg PO BID #60 tab Multivitamins, Thera [Multivitamin (formulary)] 1 each PO DAILY #30 tab Gabapentin [Neurontin] 200 mg PO TID #90 cap clindamycin HCL 300 mg PO TID #12 capsule Discontinued Ibuprofen [Motrin Ib] 200 mg PO BID Discharge Medication List Bumetanide [BUMEX] 1 mg PO DAILY #30 tab 04/08/24 [Rx] Folic Acid 1 mg PO DAILY #30 tab 04/08/24 [Rx] Gabapentin [Neurontin] 200 mg PO TID #90 cap 04/08/24 [Rx] Magnesium Oxide [Mag-Ox] 400 mg PO BID #60 tab 04/08/24 [Rx] Multivitamins, Thera [Multivitamin (formulary)] 1 each PO DAILY #30 tab 04/08/24 [Rx] Spironolactone [Aldactone] 25 mg PO DAILY #30 tab 04/08/24 [Rx] Thiamine [Vitamin B-1] 100 mg PO DAILY #30 tab 04/08/24 [Rx] clindamycin HCL 300 mg PO TID #12 capsule 04/08/24 [Rx] Follow up Appointment(s)/Referral(s): Daniel Miller DO [Primary Care Provider] - 1-2 days
== END 2024-04-10 15:10 | DRG 432 ==
LOC: EC 12:20 → 6NMEDSUR 15:31 → OBSVTOIN 15:32 → 6NMEDSUR 15:58
PROVIDERS: ADMIT Student in an Organized Health Care Education/Training Program; ATTEND Student in an Organized Health Care Education/Training Program
DX: K74.60 Unspecified cirrhosis of liver (principal); J96.01 Acute respiratory failure with hypoxia; L03.113 Cellulitis of right upper limb; E87.79 Other fluid overload; D69.59 Other secondary thrombocytopenia; E66.9 Obesity, unspecified; E83.42 Hypomagnesemia; E87.6 Hypokalemia; F10.10 Alcohol abuse, uncomplicated; J84.10 Pulmonary fibrosis, unspecified; G62.9 Polyneuropathy, unspecified; I25.10 Atherosclerotic heart disease of native coronary artery without angina pectoris; I27.20 Pulmonary hypertension, unspecified; E53.8 Deficiency of other specified B group vitamins; I25.2 Old myocardial infarction; Z68.26 Body mass index [BMI] 26.0-26.9, adult; I50.9 Heart failure, unspecified; Z79.82 Long term (current) use of aspirin; Z79.890 Hormone replacement therapy; Z79.899 Other long term (current) drug therapy; Z87.891 Personal history of nicotine dependence; Z88.1 Allergy status to other antibiotic agents; Z99.81 Dependence on supplemental oxygen
CPT/HCPCS: 36415; 71045; 71046; 76705; 80048; 80053; 81003; 82140; 82607; 82746; 82803; 83605; 83735; 83880; 84132; 84145; 84443; 84484; 85025; 85610; 85730; 93005; 93306; 94760